=== PATIENT | female | born 1945 | race Caucasian/White ===

== ENCOUNTER 2016-10-06 22:56 | Outpatient (CLI) | payer MEDICARE, OTHER | END 2016-10-06 22:57 | disposition home or self-care (01) | DX: Z01.89 Encounter for other specified special examinations (principal) ==

== ENCOUNTER 2016-12-08 10:35 | Outpatient (CLI) | payer MEDICARE ==
[2016-12-08 14:00] LABS: BASOPHILS % (AUTO) 0.5 %; EOSINOPHILS # (AUTO) 0.1 10^3/uL (0.0-0.7); EOSINOPHILS % (AUTO) 0.8 %; HGB - HEMOGLOBIN 14.2 g/dL (12.0-16.0); LYMPHOCYTES # (AUTO) 1.6 10^3/uL (1.5-3.5)
[2016-12-08 14:04] LABS: BASOPHILS # (AUTO) 0.1 10^3/uL (0.0-0.1); HCT - HEMATOCRIT 41.8 % (37.0-47.0); LYMPHOCYTES % (AUTO) 16.3 %; MEAN CORPUSCULAR HEMOGLOBIN 32.3 pg (27.0-31.0); MEAN CORPUSCULAR HGB CONC 33.9 g/dL (32.0-36.0); MEAN CORPUSCULAR VOLUME 95.2 fL (81.0-99.0); MEAN PLATELET VOLUME 9.9 fL (7.9-10.8); MONOCYTES # (AUTO) 0.7 10^3/uL (0.0-1.0); MONOCYTES % (AUTO) 7.4 %; NEUTROPHILS # (AUTO) 7.6 10^3/uL (1.5-6.6); NUCLEATED RED BLOOD CELLS AUTO 0.1 /100WBC; RED BLOOD COUNT 4.39 10^6/uL (4.20-5.40); RED CELL DISTRIBUTION WIDTH 12.7 % (12.0-15.0); UNCORRECTED WHITE BLOOD COUNT 10.1 x10^3/uL; WHITE BLOOD COUNT 10.1 x10^3/uL (4.8-10.8)
[2016-12-08 14:10] LABS: ALBUMIN/GLOBULIN RATIO 1.2 (1.0-2.2); CALCIUM 9.6 mg/dL (8.5-10.3); CREATININE 0.9 mg/dL (0.4-1.0); POTASSIUM 4.4 mmol/L (3.5-5.0); TOTAL PROTEIN 7.8 g/dL (6.7-8.2)
== END 2016-12-08 10:36 | disposition home or self-care (01) ==
LOC: LAB.WCP 10:35
PROVIDERS: ATTEND Internal Medicine Gastroenterology
DX: B19.20 Unspecified viral hepatitis C without hepatic coma (principal)
CPT/HCPCS: 36415; 80053; 85025; 87522

== ENCOUNTER 2017-02-15 13:16 | Day surgery (SDC) | payer MEDICARE ==
[2017-02-15] MEDS ORDERED: LACTATED RINGERS 1,000 ML IV ONE (13:25)
[2017-02-15] MEDS ORDERED: MIDAZOLAM 2 MG/2 ML VIAL IVP ONE (15:50)
[2017-02-15] MEDS ORDERED: fentaNYL 100 MCG/2 ML VIAL IVP ONE (15:50)
[2017-02-15 16:09] VITALS: BP 114/85
--- NOTE | 2017-02-16 01:36 | PROCEDURE REPORT ---
DATE OF PROCEDURE: 02/15/2017 00:00:00 ENDOSCOPIST: Gabriele Jesus MD. PRIMARY CARE: LIAM Carlson. INDICATION: History of polyps. PREMEDICATIONS: Fentanyl 150 mcg, Versed 9 mg IV titration. After informed consent was obtained, the patient was placed in the left lateral decubitus position. T he video colonoscope was introduced through the rectum, slowly advanced to the cecum. On slow withdra wal, mucosa was carefully examined. The scope was removed. The patient tolerated the procedure well. BLOOD LOSS: None. COMPLICATIONS: None. FINDINGS: 1. A 3 mm cecal polyp, jumbo biopsied and removed completely. 2. Otherwise negative colonoscopy to cecum. The patient will have pathology results sent to her, but otherwise will need followup colonoscopy in 5 years. JOB #: [id number] EXT JOB #:[id number]
== END 2017-02-15 13:17 | disposition home or self-care (01) ==
LOC: SDS 13:16
PROVIDERS: ATTEND Internal Medicine Gastroenterology
PROC: 0DBH8ZX Excision of Cecum, Via Natural or Artificial Opening Endoscopic, Diagnostic (ICD-10-PCS; principal; 2017-02-15 14:30)
DX: D12.0 Benign neoplasm of cecum (principal); E03.9 Hypothyroidism, unspecified; F41.9 Anxiety disorder, unspecified
CPT/HCPCS: 45380; 88305; J7120

== ENCOUNTER 2017-03-01 11:43 | Outpatient (CLI) | payer MEDICARE ==
--- NOTE | 2017-03-02 12:20 | CT Report ---
EXAM CT LUNG SCREEN EXAM DATE: 03/01/2017 04:22 PM. HISTORY: 71-year-old patient with history of smoking and other risk factors. Currently smoking: Abilio anthony. Years since quitting: Unknown. COMPARISON: 02/20/2017. 02/02/2016. TECHNIQUE: CT examination of the entire thorax without contrast was performed using low-dose techniqu e. Thin section coronal, axial, sagittal and MIP axial images were obtained. In accordance with CT protocol optimization, one or more of the following dose reduction techniques w ere utilized for this exam: automated exposure control, adjustment of mA and/or KV based on patient s ize, or use of iterative reconstructive technique. FINDINGS: Nodules: Right upper lobe: None. Right middle lobe: None. Right lower lobe: None. Left upper lobe: None. Left lower lobe: None. Emphysema: Mild predominantly upper lobe emphysematous changes. Pleura: Unremarkable. Aorta: No evidence of aneurysm. Calcified plaque along the aortic root and distal aortic arch/proxima l descending thoracic aorta. Mediastinum: Heart size is normal as pericardial effusion. No enlarged mediastinal or hilar lymph nod es. Visualized upper gland is unremarkable. Coronary Calcifications: Mild to moderate degree of coronary artery calcified plaque. Other Findings: Included portions of the upper abdomen are unremarkable. Degenerative changes of the thoracic spine. No acute osseous abnormalities are identified. IMPRESSION: Lung-RADS ASSESSMENT CATEGORY: 1 - negative. Probability of malignancy: Less than 1%. RECOMMENDATION: Continued interval screening with low-dose CT in 12 months. [facility] Referring Provider Line: [phone] SITE ID: [id number]
== END 2017-03-01 11:44 | disposition home or self-care (01) ==
LOC: DI 11:43
PROVIDERS: ATTEND Physician Assistant Medical
DX: Z12.2 Encounter for screening for malignant neoplasm of respiratory organs (principal); F17.210 Nicotine dependence, cigarettes, uncomplicated

== ENCOUNTER 2017-03-06 14:40 | Outpatient (CLI) | payer MEDICARE | END 2017-03-06 14:41 | disposition home or self-care (01) | LOC: LAB.R 14:40 | PROVIDERS: ATTEND Physician Assistant Medical | DX: N39.0 Urinary tract infection, site not specified (principal) | CPT/HCPCS: 87086 ==

== ENCOUNTER 2017-06-29 12:18 | Outpatient (CLI) | payer MEDICARE ==
--- NOTE | 2017-06-29 12:59 | CT Report ---
DATE OF SERVICE: 06/29/2017 CT BRAIN WITHOUT CONTRAST: 06/29/2017 CLINICAL INDICATION: Syncope, collapse. TECHNIQUE: Axial CT images of the brain were obtained without contrast. No previous CT is available for comparison. In accordance with CT protocol optimization, one or more of the following dose reduction techniques were utilized for this exam: Automated exposure control, adjustment of mA and/or KV based on patient size, or use of iterative reconstructive technique. FINDINGS: The ventricles and sulci are normal in size, shape and configuration. The basilar cisterns are patent. There is no evidence of intracranial hemorrhage, mass effect, or midline shift. The visualized orbital contents and paranasal sinuses are unremarkable. IMPRESSION: NORMAL CT OF THE BRAIN WITHOUT CONTRAST. TD: 06/29/2017 13:58
== END 2017-06-29 12:19 | disposition home or self-care (01) ==
LOC: DI 12:18
PROVIDERS: ATTEND Physician Assistant Medical
DX: R55 Syncope and collapse (principal)
CPT/HCPCS: 70450

== ENCOUNTER 2017-07-03 19:20 | Outpatient (CLI) | payer MEDICARE ==
[2017-07-03 19:12] LABS: BASOPHILS # (AUTO) 0.1 10^3/uL (0.0-0.1); EOSINOPHILS % (AUTO) 0.4 %; HGB - HEMOGLOBIN 14.1 g/dL (12.0-16.0); LYMPHOCYTES # (AUTO) 2.4 10^3/uL (1.5-3.5); LYMPHOCYTES % (AUTO) 26.9 %; MEAN CORPUSCULAR HEMOGLOBIN 31.1 pg (27.0-31.0); MEAN CORPUSCULAR HGB CONC 32.7 g/dL (32.0-36.0); MEAN CORPUSCULAR VOLUME 95.2 fL (81.0-99.0); MEAN PLATELET VOLUME 9.5 fL (7.9-10.8); MONOCYTES # (AUTO) 0.7 10^3/uL (0.0-1.0); MONOCYTES % (AUTO) 7.3 %; NEUTROPHILS # (AUTO) 5.8 10^3/uL (1.5-6.6); NEUTROPHILS % (AUTO) 64.4 %; PLT - PLATELET COUNT 272 10^3/uL (130-450); RED BLOOD COUNT 4.54 10^6/uL (4.20-5.40); RED CELL DISTRIBUTION WIDTH 12.7 % (12.0-15.0)
[2017-07-03 19:33] LABS: ALBUMIN 4.3 g/dL (3.2-5.5); ALBUMIN/GLOBULIN RATIO 1.2 (1.0-2.2); BILIRUBIN,TOTAL 0.9 mg/dL (0.2-1.0); CALCIUM 9.4 mg/dL (8.5-10.3); CREATININE 0.8 mg/dL (0.4-1.0); MAGNESIUM 1.9 mg/dL (1.7-2.8); TOTAL PROTEIN 7.9 g/dL (6.7-8.2)
== END 2017-07-03 19:21 | disposition home or self-care (01) ==
LOC: LAB.R 19:20
PROVIDERS: ATTEND Physician Assistant Medical
DX: R55 Syncope and collapse (principal)
CPT/HCPCS: 80053; 83735; 85025

== ENCOUNTER 2018-01-11 08:00 | Outpatient (CLI) | payer MEDICARE, MEDICAID ==
[2018-01-11 18:54] LABS: BASOPHILS % (AUTO) 0.5 %; EOSINOPHILS # (AUTO) 0.1 10^3/uL (0.0-0.7); EOSINOPHILS % (AUTO) 0.9 %; HGB - HEMOGLOBIN 14.7 g/dL (12.0-16.0); LYMPHOCYTES # (AUTO) 2.4 10^3/uL (1.5-3.5); LYMPHOCYTES % (AUTO) 28.4 %; MEAN CORPUSCULAR HEMOGLOBIN 32.4 pg (27.0-31.0); MEAN CORPUSCULAR HGB CONC 33.7 g/dL (32.0-36.0); MEAN CORPUSCULAR VOLUME 96.3 fL (81.0-99.0); MEAN PLATELET VOLUME 9.9 fL (7.9-10.8); MONOCYTES # (AUTO) 0.8 10^3/uL (0.0-1.0); MONOCYTES % (AUTO) 9.1 %; NEUTROPHILS # (AUTO) 5.2 10^3/uL (1.5-6.6); NEUTROPHILS % (AUTO) 61.1 %; PLT - PLATELET COUNT 262 10^3/uL (130-450); RED BLOOD COUNT 4.52 10^6/uL (4.20-5.40); RED CELL DISTRIBUTION WIDTH 13.1 % (12.0-15.0); WHITE BLOOD COUNT 8.5 x10^3/uL (4.8-10.8)
[2018-01-11 19:06] LABS: ALBUMIN/GLOBULIN RATIO 1.2 (1.0-2.2); ALKALINE PHOSPHATASE 76 IU/L (42-121); ALT ALANINE AMINOTRANSFERASE 14 IU/L (10-60); AST ASPARTATE AMINOTRANSFERASE 22 IU/L (10-42); BILIRUBIN,TOTAL 1.1 mg/dL (0.2-1.0); BUN - BLOOD UREA NITROGEN 14 mg/dL (6-20); CALCIUM 9.7 mg/dL (8.5-10.3); CARBON DIOXIDE - CO2 27 mmol/L (21-32); CHLORIDE 97 mmol/L (101-111); CHOLESTEROL 269 mg/dL; GFR - MDRD 55 (>89); GLUCOSE 82 mg/dL (70-100); HDL CHOLESTEROL 45 mg/dL; LDL CHOLESTEROL,CALCULATED 186 mg/dL; LDL/HDL RATIO 4.1 (<4.4); SODIUM 132 mmol/L (135-145); TOTAL PROTEIN 7.3 g/dL (6.7-8.2); VLDL CHOLESTEROL 38 mg/dL
== END 2018-01-11 08:01 | disposition home or self-care (01) ==
LOC: LAB.WCP 08:00
PROVIDERS: ATTEND Physician Assistant Medical
DX: B19.20 Unspecified viral hepatitis C without hepatic coma (principal); R55 Syncope and collapse; E03.9 Hypothyroidism, unspecified; J30.9 Allergic rhinitis, unspecified
CPT/HCPCS: 36415; 80053; 80061; 83721; 84443; 85025

== ENCOUNTER → 2018-01-29 | Outpatient (CLI) | payer MEDICARE, MEDICAID ==
[2018-01-29 19:04] LABS: BASOPHILS % (AUTO) 0.5 %; EOSINOPHILS # (AUTO) 0.1 10^3/uL (0.0-0.7); EOSINOPHILS % (AUTO) 1.5 %; HGB - HEMOGLOBIN 14.3 g/dL (12.0-16.0); LYMPHOCYTES # (AUTO) 1.9 10^3/uL (1.5-3.5); LYMPHOCYTES % (AUTO) 24.8 %; MEAN CORPUSCULAR HEMOGLOBIN 32.4 pg (27.0-31.0); MEAN CORPUSCULAR HGB CONC 33.6 g/dL (32.0-36.0); MEAN CORPUSCULAR VOLUME 96.6 fL (81.0-99.0); MONOCYTES # (AUTO) 0.7 10^3/uL (0.0-1.0); MONOCYTES % (AUTO) 8.9 %; NEUTROPHILS % (AUTO) 64.3 %; PLT - PLATELET COUNT 256 10^3/uL (130-450); RED BLOOD COUNT 4.42 10^6/uL (4.20-5.40); RED CELL DISTRIBUTION WIDTH 13.2 % (12.0-15.0); WHITE BLOOD COUNT 7.8 x10^3/uL (4.8-10.8)
[2018-01-29 19:41] LABS: ALBUMIN 4.2 g/dL (3.2-5.5); ALBUMIN/GLOBULIN RATIO 1.2 (1.0-2.2); ALKALINE PHOSPHATASE 70 IU/L (42-121); ALT ALANINE AMINOTRANSFERASE 17 IU/L (10-60); AST ASPARTATE AMINOTRANSFERASE 22 IU/L (10-42); BILIRUBIN,TOTAL 1.2 mg/dL (0.2-1.0); BUN - BLOOD UREA NITROGEN 17 mg/dL (6-20); CALCIUM 9.1 mg/dL (8.5-10.3); CARBON DIOXIDE - CO2 23 mmol/L (21-32); CHLORIDE 106 mmol/L (101-111); CHOL/HDL RATIO 3.2 (<4.4); CHOLESTEROL 170 mg/dL; CREATININE 0.8 mg/dL (0.4-1.0); GFR - MDRD 71 (>89); GLUCOSE 105 mg/dL (70-100); HDL CHOLESTEROL 53 mg/dL; LDL CHOLESTEROL,CALCULATED 95 mg/dL; LDL/HDL RATIO 1.8 (<4.4); SODIUM 138 mmol/L (135-145); TOTAL PROTEIN 7.8 g/dL (6.7-8.2); VLDL CHOLESTEROL 22 mg/dL
== END ==
LOC: LAB.WCP 08:00
PROVIDERS: ATTEND Internal Medicine Cardiovascular Disease
DX: R55 Syncope and collapse (principal); E78.5 Hyperlipidemia, unspecified
CPT/HCPCS: 36415; 80053; 80061; 83721; 84443; 85025

== ENCOUNTER 2018-04-05 13:34 | Outpatient (CLI) | payer MEDICARE, MEDICAID ==
--- NOTE | 2018-04-06 10:14 | Mammography Report ---
Reason: SCREENING MAMMO Procedure Date: 04/05/2018 Accession Number: [id number] / [id number] Procedure: MGN - Screening Mammo Dig Bilat CPT Code: FULL RESULT: EXAM: Screening Mammo Dig Bilat DATE: 04/05/2018 1:56 PM CLINICAL HISTORY: Routine screening TECHNIQUE: Bilateral CC and MLO views were obtained. COMPARISON: 03/16/2016, 02/12/2015, 06/11/2013 and 06/03/2013 FINDINGS: There are scattered fibroglandular densities. There is no significant interval change. No suspicious masses, clustered microcalcifications, or regions of architectural distortion are identified. IMPRESSION: Negative examination RECOMMENDATION: Routine annual screening unless otherwise clinically indicated. BIRADS CATEGORY 1: Negative STANDARD QUALIFYING STATEMENTS: 1. This examination was reviewed with the aid of Computer-Aided Detection (CAD). 2. A negative or benign imaging report should not delay biopsy if clinically suspicious findings are present. Consider surgical consultation if warrented. More than 5% of cancers are not identified by imaging. 3. Dense breasts may obscure an underlying neoplasm.
== END 2018-04-05 13:35 | disposition home or self-care (01) ==
LOC: DI.N 13:34
DX: Z12.31 Encounter for screening mammogram for malignant neoplasm of breast (principal)
CPT/HCPCS: 77067

== ENCOUNTER 2018-05-19 11:33 | Outpatient (CLI) | payer MEDICARE, MEDICAID ==
--- NOTE | 2018-05-21 12:13 | MRI Report ---
Reason: INTERNAL DERANGEMENT OF RIGHT KNEE Procedure Date: 05/19/2018 Accession Number: [id number] / [id number] Procedure: MRI - Knee RT W/O CPT Code: FULL RESULT: EXAM: RIGHT KNEE MRI WITHOUT CONTRAST EXAM DATE: 05/19/2018 12:38 PM. CLINICAL HISTORY: Internal derangement of right knee. COMPARISON: KNEE 2 VIEW RT 05/16/2018 8:12 AM. TECHNIQUE: Multiplanar, multisequence T1-weighted and fluid-sensitive sequences of the knee without contrast. Other: None. FINDINGS: Bones: Healing nondisplaced fracture posterior aspect medial tibial plateau. Moderate spurring lateral femoral condyle. Mild spurring medial and lateral tibial plateau. Moderate spurring anterior aspect medial femoral condyle. Mild edema anterior aspect medial tibial plateau. Articular Cartilage: Severe chondromalacia medial patellar facet and patellar apex. Moderate chondromalacia medial femoral condyle. Severe chondromalacia medial tibiofemoral compartment. Moderate chondromalacia medial tibiofemoral compartment. Medial Meniscus: Complex tear body and posterior horn medial meniscus. Lateral Meniscus: Small free edge tear junction anterior horn and body lateral meniscus. Cruciate Ligaments: The anterior and posterior cruciate ligaments are intact. Collateral Ligaments: The medial collateral and lateral collateral ligamentous structures are intact. Tendons: The quadriceps, patellar, semimembranosus, and popliteus tendons are unremarkable. Musculature: No edema or fatty atrophy. Other: Moderate quantity of fluid patellar recesses. No popliteal cyst. No loose bodies. The medial and lateral retinacula are intact. The subcutaneous tissues and fat pads are unremarkable. IMPRESSION: 1. Complex tear body and posterior horn medial meniscus. 2. Severe chondromalacia medial tibiofemoral compartment. 3. Moderate chondromalacia lateral tibiofemoral compartment. 4. Severe chondromalacia medial patellar facet. [facility] MUSCULOSKELETAL RADIOLOGY SECTION
== END 2018-05-19 11:34 | disposition home or self-care (01) ==
LOC: DI 11:33
PROVIDERS: ATTEND Physician Assistant
DX: S83.231A Complex tear of medial meniscus, current injury, right knee, initial encounter (principal); M94.261 Chondromalacia, right knee

== ENCOUNTER 2018-08-22 10:46 | Outpatient (CLI) | payer MEDICARE, MEDICAID | END 2018-08-22 23:59 | disposition home or self-care (01) | LOC: LAB.WCP 10:46 | PROVIDERS: ATTEND Physician Assistant | DX: S81.802S Unspecified open wound, left lower leg, sequela (principal) | CPT/HCPCS: 87070; 87075; 87205 ==

== ENCOUNTER 2018-10-22 08:00 | Outpatient (CLI) | payer MEDICARE, MEDICAID ==
[2018-10-22 19:00] LABS: % IRON SATURATION 29 % (20-50); ALBUMIN 4.2 g/dL (3.2-5.5); ALBUMIN/GLOBULIN RATIO 1.4 (1.0-2.2); ALKALINE PHOSPHATASE 64 IU/L (42-121); ALT ALANINE AMINOTRANSFERASE 12 IU/L (10-60); AST ASPARTATE AMINOTRANSFERASE 18 IU/L (10-42); BILIRUBIN,TOTAL 0.6 mg/dL (0.2-1.0); BUN - BLOOD UREA NITROGEN 22 mg/dL (6-20); CALCIUM 8.8 mg/dL (8.5-10.3); CARBON DIOXIDE - CO2 25 mmol/L (21-32); CHLORIDE 100 mmol/L (101-111); CHOL/HDL RATIO 2.4 (<4.4); CHOLESTEROL 156 mg/dL; CREATININE 0.8 mg/dL (0.4-1.0); GFR - MDRD 71 (>89); GLUCOSE 88 mg/dL (70-100); HDL CHOLESTEROL 65 mg/dL; IRON 100 ug/dL (28-170); LDL CHOLESTEROL,CALCULATED 76 mg/dL; LDL/HDL RATIO 1.2 (<4.4); SODIUM 134 mmol/L (135-145); TOTAL IRON BINDING CAPACITY 349 ug/dL (250-450); TOTAL PROTEIN 7.3 g/dL (6.7-8.2); TRANSFERRIN 249 mg/dL (192-382); VLDL CHOLESTEROL 15 mg/dL
[2018-10-22 19:32] LABS: BASOPHILS % (AUTO) 0.4 %; EOSINOPHILS # (AUTO) 0.1 10^3/uL (0.0-0.7); EOSINOPHILS % (AUTO) 0.7 %; HGB - HEMOGLOBIN 13.2 g/dL (12.0-16.0); MEAN CORPUSCULAR HEMOGLOBIN 31.7 pg (27.0-31.0); MEAN CORPUSCULAR HGB CONC 32.9 g/dL (32.0-36.0); MEAN CORPUSCULAR VOLUME 96.1 fL (81.0-99.0); MEAN PLATELET VOLUME 9.4 fL (7.9-10.8); MONOCYTES # (AUTO) 0.8 10^3/uL (0.0-1.0); MONOCYTES % (AUTO) 9.1 %; NEUTROPHILS # (AUTO) 6.1 10^3/uL (1.5-6.6); NEUTROPHILS % (AUTO) 67.8 %; PLT - PLATELET COUNT 248 10^3/uL (130-450); RED BLOOD COUNT 4.17 10^6/uL (4.20-5.40); RED CELL DISTRIBUTION WIDTH 13.2 % (12.0-15.0)
== END 2018-10-22 08:01 | disposition home or self-care (01) ==
LOC: LAB.WCP 08:00
PROVIDERS: ATTEND Physician Assistant
DX: E78.5 Hyperlipidemia, unspecified (principal); R53.83 Other fatigue
CPT/HCPCS: 36415; 80053; 80061; 83540; 83721; 84443; 84466; 85025

== ENCOUNTER 2018-12-04 13:41 | Outpatient (CLI) | payer MEDICARE, MEDICAID | END 2018-12-04 13:42 | disposition short-term general hospital (02) | LOC: EMS 13:41 | PROVIDERS: ATTEND Surgery | DX: R53.83 Other fatigue (principal); R53.1 Weakness | CPT/HCPCS: A0425; A0429; A0888 ==

== ENCOUNTER 2019-01-03 10:44 | Outpatient (CLI) | payer MEDICARE, MEDICAID ==
[2019-01-03] MEDS ORDERED: REGADENOSON 0.4 MG/5 ML SYRINGE IVP ONE (12:02)
--- NOTE | 2019-01-03 14:31 | CARDIAC PROCEDURE NOTE ---
DATE OF SERVICE: 01/03/2019 Physician: Bianka Aguillon MD, [facility] INDICATIONS: Chest pain. CARDIAC RISK FACTORS 1. Advanced age. 2. Post-menopausal status. 3. Family history of heart disease 4. Smoking history. PROCEDURE: After signing informed consent, the patient underwent a Jose- protocol treadmill stress test with nuclear myocardial perfusion imaging. RESTING HEART RATE: 58. PEAK HEART RATE: 126 (86% predicted maximum heart rate for age). RESTING BLOOD PRESSURE: 120/81. PEAK BLOOD PRESSURE: 140/70. The patient exercised for 3 minutes and 35 seconds on a Jose-protocol treadmill stress test. She achieved a peak heart rate of 126 (86% Pred Max HR) and 4.6 METS. The patient developed fatigue and moderate to severe shortness of breath, described her perceived exertion as 14/20 on a Lilliana scale. For this reason, exercise was stopped. Oxygen saturation was 94% at peak on room air. She had no complaints of chest pain. EKG AT REST: Normal sinus rhythm, left atrial enlargement, otherwise within normal limits. EKG AT PEAK: Rare PACs, 1.[address] depressions in leads V5 through V6. These abnormalities returned to baseline after 4 minutes of recovery. SUMMARY 1. Mildly abnormal resting EKG. 2. Poor exercise tolerance. 3. Borderline-abnormal EKG changes to suggest ischemia during exercise stress testing at an adequate level of stress. 4. This patient's cardiac risk, based on EKG alone, is MODERATE. 5. Nuclear images reported separately. cc: Harmony Gale PA-C TD: 01/03/2019 14:11 MTDAgata
--- NOTE | 2019-01-04 11:33 | Nuclear Medicine Report ---
Reason: CHEST PAIN Procedure Date: 01/03/2019 Accession Number: [id number] / [id number] Procedure: NM - Myocardial Perfusion STR/RST CPT Code: FULL RESULT: EXAM: SINGLE-ISOTOPE EXERCISE STRESS TEST. SINGLE-ISOTOPE AND ONE-DAY REST/STRESS MYOCARDIAL PERFUSION SCANS WITH TOMOGRAPHIC IMAGING, QUANTITATIVE ANALYSIS, WALL MOTION ANALYSIS AND CALCULATION OF EJECTION FRACTION. EXAM DATE: 01/03/2019 02:05 PM. CLINICAL HISTORY: CHEST PAIN. COMPARISON: None. TECHNIQUE: A rest myocardial perfusion scan was done with tomography after the intravenous administration of 10.7 mCi Tc-99m sestamibi. After an appropriate delay, a treadmill exercise stress was performed according to department protocol. The patient exercised for 3 minutes and 35 seconds. The maximum heart rate was 126 bpm, which was 85% of the maximum predicted heart rate of 148 bpm. At approximately peak heart rate, 43.4 mCi of Tc-99m sestamibi was injected for stress myocardial perfusion scan. Motion correction was applied when appropriate. Gated tomographic images were obtained for wall motion analysis and computation of left ventricular ejection fraction. FINDINGS: Perfusion images: Left ventricular chamber size appears normal at rest and unchanged at stress. No convincing fixed perfusion deficits. There is a moderate size region of mildly reduced uptake involving the entire septum on stress images which appears improved on rest images. SSS 9, SRS 2, SDS 7. Gated images: No convincing focal wall motion abnormality. Calculated left ventricular EDV 44 mL, ESV 11 mL. The left ventricular ejection fraction is estimated at 75% (normal > 50%). IMPRESSION: 1. Moderate size, mild severity reversible septal perfusion deficit, suggestive of mild stress-induced ischemia. 2. No convincing fixed perfusion deficits. 3. Left ventricular ejection fraction of 75% (normal > 50%). Please correlate findings with stress ECG tracings and procedure notes. [facility]
== END 2019-01-03 10:45 | disposition home or self-care (01) ==
LOC: DI 10:44
PROVIDERS: ATTEND Physician Assistant
DX: R07.9 Chest pain, unspecified (principal); R94.31 Abnormal electrocardiogram [ECG] [EKG]; Z82.49 Family history of ischemic heart disease and other diseases of the circulatory system; Z78.0 Asymptomatic menopausal state; Z87.891 Personal history of nicotine dependence
CPT/HCPCS: 78452; 93016; 93017; 93018; A9500

== ENCOUNTER 2019-01-09 08:23 | Outpatient (CLI) | payer MEDICARE, MEDICAID ==
[2019-01-09 12:45] LABS: BASOPHILS % (AUTO) 0.5 %; EOSINOPHILS # (AUTO) 0.2 10^3/uL (0.0-0.7); EOSINOPHILS % (AUTO) 2.1 %; HGB - HEMOGLOBIN 13.4 g/dL (12.0-16.0); LYMPHOCYTES % (AUTO) 23.4 %; MEAN CORPUSCULAR HEMOGLOBIN 32.8 pg (27.0-31.0); MEAN CORPUSCULAR HGB CONC 33.3 g/dL (32.0-36.0); MEAN CORPUSCULAR VOLUME 98.3 fL (81.0-99.0); MONOCYTES # (AUTO) 0.7 10^3/uL (0.0-1.0); MONOCYTES % (AUTO) 8.6 %; NEUTROPHILS # (AUTO) 5.6 10^3/uL (1.5-6.6); PLT - PLATELET COUNT 263 10^3/uL (130-450); RED BLOOD COUNT 4.09 10^6/uL (4.20-5.40); RED CELL DISTRIBUTION WIDTH 12.6 % (12.0-15.0); WHITE BLOOD COUNT 8.5 x10^3/uL (4.8-10.8)
[2019-01-09 13:40] LABS: ALBUMIN/GLOBULIN RATIO 1.3 (1.0-2.2); ALKALINE PHOSPHATASE 64 IU/L (42-121); ALT ALANINE AMINOTRANSFERASE 14 IU/L (10-60); AST ASPARTATE AMINOTRANSFERASE 21 IU/L (10-42); BUN - BLOOD UREA NITROGEN 18 mg/dL (6-20); CALCIUM 9.1 mg/dL (8.5-10.3); CARBON DIOXIDE - CO2 19 mmol/L (21-32); CHLORIDE 110 mmol/L (101-111); CHOL/HDL RATIO 2.5 (<4.4); CHOLESTEROL 165 mg/dL; GFR - MDRD 55 (>89); GLUCOSE 101 mg/dL (70-100); HDL CHOLESTEROL 65 mg/dL; LDL CHOLESTEROL,CALCULATED 82 mg/dL; LDL/HDL RATIO 1.3 (<4.4); SODIUM 140 mmol/L (135-145); TOTAL PROTEIN 7.1 g/dL (6.7-8.2); VLDL CHOLESTEROL 18 mg/dL
== END 2019-01-09 08:24 | disposition home or self-care (01) ==
LOC: LAB.WCP 08:23
PROVIDERS: ATTEND Physician Assistant
DX: E78.5 Hyperlipidemia, unspecified (principal); E03.9 Hypothyroidism, unspecified
CPT/HCPCS: 36415; 80053; 80061; 83721; 84443; 85025

== ENCOUNTER 2019-03-03 12:52 | Emergency (ER) | payer MEDICARE, MEDICAID ==
--- NOTE | 2019-03-03 13:30 | ED Physician Documentation ---
PD HPI HEAD INJURY - Stated complaint Stated Complaint: HEAD LAC - Chief complaint Chief Complaint: Laceration - History obtained from History obtained from: Patient - History of Present Illness Mechanism of head injury: Fell, Laceration Where head injury occurred: Home Timing - onset: Today (3AM) Location of injury: Right Associated symptoms: Amnesia. No: Nausea / vomiting, Neck pain, Paresthesias, Seizures Symptoms improve with: Nothing Contributing factors: Anticoagulated (baby aspirin daily) Similar symptoms before: Has not had sx before Recently seen: Not recently seen - Additional information Additional information: Is a 73-year-old woman who lives alone. She was running for the bathroom last night at 3 AM when she fell hitting her head on something. She says she remembers a lot of blood in the bathtub and she thinks she may have gotten on her hands and knees and leaned over the tub and dripped into it. She does not know whether or not she passed out. She lives alone. She did not think that much of the cut, was just going to let it heal until her neighbor saw it and insisted that she come in and be evaluated. Patient has not cleaned it at all. She is uncertain when her last tetanus vaccine was. She does have a headache along the right side of her head encompassing the forehead and slightly down into the upper neck. She denies feeling dizzy or having nausea or vomiting. She denies any pain, numbness or tingling into the extremities. No extremity injury. She drove herself here. She takes a baby aspirin daily. She has had an anaphylactic reaction to penicillin in the past. Review of Systems Eyes: denies: Loss of vision, Decreased vision Ears: denies: Drainage/discharge Throat: reports: Other (Jaw occlusion is normal) Cardiac: denies: Palpitations Skin: reports: Laceration (s) (Right forehead) Musculoskeletal: denies: Neck pain Neurologic: reports: Headache, Head injury, LOC (Unknown). 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 - Present Medications Home Medications: Ambulatory Orders Medication Instructions Recorded Confirmed Acetaminophen 500 mg PO QID 02/15/17 09/05/18 Acetaminophen [Feverall] 1 each PO TID 02/15/17 09/05/18 Duloxetine HCl [Cymbalta] 60 mg PO DAILY 02/15/17 09/05/18 Eszopiclone [Lunesta] 3 mg PO DAILY 02/15/17 09/05/18 Gabapentin [Neurontin] 400 mg PO HS 02/15/17 09/05/18 Lorazepam [Ativan] 2 mg PO DAILY PM 02/15/17 09/05/18 Multivitamin [Multiple Vitamins] 1 each PO DAILY 02/15/17 09/05/18 [place]-3 Fatty Acids/Fish Oil [Fish 1 each PO DAILY 02/15/17 09/05/18 Oil 1,000 mg Softgel] Prazosin HCl [Minipress] 2 mg PO DAILY 02/15/17 09/05/18 Doxycycline Monohydrate 100 mg PO BID #6 tablet 03/03/19 - Allergies Allergies/Adverse Reactions: Allergies Allergy/AdvReac Type Severity Reaction Status Date / Time bee pollen Allergy Edema Verified 03/03/19 12:58 diphenhydramine HCl * Allergy Itching Verified 03/03/19 12:58 [From Benadryl] Penicillins Allergy Anaphylaxis Verified 03/03/19 12:58 codeine AdvReac Nausea Verified 03/03/19 12:58 Sulfa (Sulfonamide AdvReac Unknown Verified 03/03/19 12:58 Antibiotics) - Social History Does the pt smoke?: Yes Smoking Status: Current every day smoker PD ED PE NORMAL - Vitals Vital signs reviewed: Yes - General General: Alert and oriented X 3, No acute distress, Well developed/nourished - HEENT HEENT: PERRL, EOMI, Ears normal (No hemotympanum) - Neck Neck: No bony TTP - Cardiac Cardiac: RRR, No murmur - Respiratory Respiratory: No respiratory distress - Abdomen Abdomen: Normal bowel sounds, Soft - Derm Derm: Normal color, Other (3 cm laceration with dried blood on it on the right forehead.Forehead wrinkling is intact.) - Extremities Extremities: No deformity, No tenderness to palpate, Normal ROM s pain, No edema - Neuro Neuro: Alert and oriented X 3, criminal intelligence analyst 2-12 intact, No motor deficit, No sensory deficit, Normal speech, Other (No ataxia) - Psych Psych: Normal mood, Normal affect Results - Vitals Vitals: Oxygen O2 Source Room air Procedures - Laceration (location) Face right Length in cm: 3 Wound type: Irregular Neurovascular status: Sensory intact, Motor intact Anesthesia: Lidocaine 2% with epi Wound Preparation: Betadine, Irrigated copiously NS, Wound explored, To the base. No: FB identified Skin layer closure: Nylon, Interrupted, Sutures - enter # (7) Other: Patient tolerated well, No complications, Tetanus booster given Complexity: Simple PD MEDICAL DECISION MAKING - ED course Complexity details: d/w patient ED course: Head CT was negative for bleeding. Wound was repaired and patient tolerated this well. She is instructed on wound care and suture removal in 5 days. T ylenol if needed for pain. Follow-up if any signs of wound infection. I did place her on 3 days of doxycycline 100 mg twice daily due to the delayed closure. Departure - Departure Disposition: 01 Home, Self Care Clinical Impression: Laceration Instructions: ED Laceration All Follow-Up: Harmony Gale PA [Primary Care Provider] - Prescriptions: Doxycycline Monohydrate 100 mg PO BID #6 tablet Comments: * May wash the wound tomorrow with soap and water. Keep it clean and dry today. May apply thin layer of antibiotic ointment. Take the doxycycline twice a day for 3 days because we closed an older wound. Sutures should be removed in 5 days. Return immediately if any signs of infection to include spreading redness, purulent drainage, fever, increasing pain. Discharge Date/Time: 03/03/19 14:49
[2019-03-03] MEDS ORDERED: LIDOCAINE 2%-EPI 1:100000 20 ML MDV SUBQ STA (13:31)
[2019-03-03] MEDS ORDERED: TETANUS/DIPHTHERIA/PERTUSSIS 0.5 ML SYRINGE IM ONE (13:39)
[2019-03-03] MEDS ORDERED: BACITRACIN ZINC OINT 14 GM TOP STA (14:09)
--- NOTE | 2019-03-03 14:15 | CT Report ---
Reason: head injury from fall Procedure Date: 03/03/2019 Accession Number: [id number] / [id number] Procedure: CT - HEAD WO CPT Code: FULL RESULT: EXAM: CT HEAD EXAM DATE: 03/03/2019 01:41 PM. CLINICAL HISTORY: Head injury from fall. COMPARISON: HEAD W/O 06/29/2017 12:27 PM. TECHNIQUE: Multiaxial CT images were obtained from the foramen magnum to the vertex. Reformats: Sagittal and coronal. IV contrast: None. In accordance with CT protocol optimization, one or more of the following dose reduction techniques were utilized for this exam: automated exposure control, adjustment of mA and/or KV based on patient size, or use of iterative reconstructive technique. FINDINGS: Parenchyma: Tiny lacunar infarct in left basal ganglia. No intraparenchymal hemorrhage. No evidence of mass, midline shift, or CT findings of infarction. Garcia-white differentiation is distinct. Extraaxial Spaces: Normal for age. No subdural or epidural collections identified. Ventricles: Normal in size and position. Sinuses and Orbits: Imaged paranasal sinuses, orbits, and mastoids show no significant abnormality. Bones: No evidence of fracture or calvarial defect. Other: None. IMPRESSION: No acute traumatic intracranial abnormality. [facility]
[2019-03-03 14:29] VITALS: BP 146/77
== END 2019-03-03 14:49 | disposition home or self-care (01) ==
LOC: ED 12:52
DX: S01.91XA Laceration without foreign body of unspecified part of head, initial encounter (principal); W18.30XA Fall on same level, unspecified, initial encounter; Y93.02 Activity, running; Y92.002 Bathroom of unspecified non-institutional (private) residence as the place of occurrence of the external cause; F17.200 Nicotine dependence, unspecified, uncomplicated
CPT/HCPCS: 12013; 70450; 90471

== ENCOUNTER 2019-03-11 14:08 | Outpatient (CLI) | payer MEDICARE, MEDICAID | END 2019-03-11 14:09 | disposition critical access hospital (66) | LOC: EMS 14:08 | PROVIDERS: ATTEND Surgery | DX: R07.9 Chest pain, unspecified (principal) | CPT/HCPCS: A0425; A0427 ==

== ENCOUNTER 2019-03-11 14:31 | Emergency (ER) | payer MEDICARE, MEDICAID ==
[2019-03-11 15:01] LABS: BASOPHILS # (AUTO) 0.1 10^3/uL (0.0-0.1); BASOPHILS % (AUTO) 0.5 %; EOSINOPHILS # (AUTO) 0.2 10^3/uL (0.0-0.7); EOSINOPHILS % (AUTO) 1.7 %; HGB - HEMOGLOBIN 10.5 g/dL (12.0-16.0); LYMPHOCYTES % (AUTO) 15.8 %; MEAN CORPUSCULAR HEMOGLOBIN 32.6 pg (27.0-31.0); MEAN CORPUSCULAR HGB CONC 33.5 g/dL (32.0-36.0); MEAN CORPUSCULAR VOLUME 97.2 fL (81.0-99.0); MEAN PLATELET VOLUME 10.3 fL (7.9-10.8); MONOCYTES # (AUTO) 0.9 10^3/uL (0.0-1.0); MONOCYTES % (AUTO) 7.1 %; NEUTROPHILS # (AUTO) 9.2 10^3/uL (1.5-6.6); NEUTROPHILS % (AUTO) 74.6 %; PLT - PLATELET COUNT 235 10^3/uL (130-450); RED BLOOD COUNT 3.22 10^6/uL (4.20-5.40); RED CELL DISTRIBUTION WIDTH 12.2 % (12.0-15.0); WHITE BLOOD COUNT 12.3 x10^3/uL (4.8-10.8)
[2019-03-11 15:13] LABS: ALBUMIN 3.5 g/dL (3.2-5.5); ALBUMIN/GLOBULIN RATIO 1.1 (1.0-2.2); BILIRUBIN,TOTAL 0.5 mg/dL (0.2-1.0); CALCIUM 8.6 mg/dL (8.5-10.3); TOTAL PROTEIN 6.6 g/dL (6.7-8.2)
--- NOTE | 2019-03-11 15:49 | ED Physician Documentation ---
PD HPI CHEST PAIN - Stated complaint Stated Complaint: RESOLVED CP - Chief complaint Chief Complaint: Cardiac - History obtained from History obtained from: Patient, Family - History of Present Illness Timing - onset: Last night Timing - details: Now resolved Quality: Pain Location: Substernal Improved by: Nitro, ASA Similar symptoms before: Work up / diagnostics (Nuclear stress test in December 2018 revealed moderate sized mild severity reversible septal perfusion deficit, sugg estive of mild stress-induced ischemia.) Recently seen: Clinic (The patient was sent to the emergency department from her primary physician's clinic.) - Treatment prior to arrival Treatment prior to arrival: Sublingual nitroglycerin x1, and 4 baby aspirin. - Additional information Additional information: The patient is a 73-year-old female with history of coronary artery disease with a stress test in December 2018 revealing a reversible perfusion deficit, who presents via ambulance after experiencing substernal chest pain throughout most of the night. She was seen in her primary physician's office this morning and was given 4 baby aspirin and 1 sublingual nitroglycerin, which completely r elieved her substernal chest discomfort. She denies any associated shortness of breath, diaphoresis, nausea or vomiting. She has had similar symptoms intermittently in the past, but it has never lasted this long before. She denies cough or fever. She has been taking ibuprofen, up to 3000 mg/day for shoulder pain, back pain, and chest pain. Review of Systems Constitutional: denies: Fever Nose: denies: Congestion Throat: denies: Sore throat Cardiac: reports: Chest pain / pressure Respiratory: denies: Dyspnea, Cough GI: denies: Abdominal Pain, Nausea, Vomiting : denies: Dysuria Skin: denies: Rash Musculoskeletal: denies: Extremity pain, Extremity swelling Neurologic: denies: Focal weakness, Numbness, Headache PD PAST MEDICAL HISTORY - Past Medical History Cardiovascular: None Respiratory: None Endocrine/Autoimmune: HyPOthyroidism GI: Colon polyps : None HEENT: Chronic hearing loss Psych: Anxiety, Panic attacks, Claustrophobia Musculoskeletal: Osteoarthritis Derm: None Other Past Medical History: previous IV drug user - Past Surgical History General: Colonoscopy Ortho: Hip replacement /[employer]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: 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 - Present Medications Home Medications: Ambulatory Orders Medication Instructions Recorded Confirmed Acetaminophen 500 mg PO QID 02/15/17 09/05/18 Acetaminophen [Feverall] 1 each PO TID 02/15/17 09/05/18 Duloxetine HCl [Cymbalta] 60 mg PO DAILY 02/15/17 09/05/18 Eszopiclone [Lunesta] 3 mg PO DAILY 02/15/17 09/05/18 Gabapentin [Neurontin] 400 mg PO HS 02/15/17 09/05/18 Lorazepam [Ativan] 2 mg PO DAILY PM 02/15/17 09/05/18 Multivitamin [Multiple Vitamins] 1 each PO DAILY 02/15/17 09/05/18 [place]-3 Fatty Acids/Fish Oil [Fish 1 each PO DAILY 02/15/17 09/05/18 Oil 1,000 mg Softgel] Prazosin HCl [Minipress] 2 mg PO DAILY 02/15/17 09/05/18 Doxycycline Monohydrate 100 mg PO BID #6 tablet 03/03/19 - Allergies Allergies/Adverse Reactions: Allergies Allergy/AdvReac Type Severity Reaction Status Date / Time bee pollen Allergy Edema Verified 03/11/19 14:43 diphenhydramine HCl * Allergy Itching Verified 03/11/19 14:43 [From Benadryl] Penicillins Allergy Anaphylaxis Verified 03/11/19 14:43 codeine AdvReac Nausea Verified 03/11/19 14:43 Sulfa (Sulfonamide AdvReac Unknown Verified 03/11/19 14:43 Antibiotics) - Social History Does the pt smoke?: Yes Smoking Status: Current every day smoker Does the pt drink ETOH?: No Does the pt have substance abuse?: No - Immunizations Immunizations are current?: Yes - POLST Patient has POLST: No PD ED PE NORMAL - Vitals Vital signs reviewed: Yes (Normal) - General General: Alert and oriented X 3, Well developed/nourished - HEENT HEENT: Atraumatic, Pharynx benign - Neck Neck: No adenopathy, No JVD - Cardiac Cardiac: RRR - Respiratory Respiratory: No respiratory distress, Clear bilaterally - Abdomen Abdomen: Soft, Non tender - Back Back: No CVA TTP - Derm Derm: No rash - Extremities Extremities: No edema, No calf tenderness / cord - Neuro Neuro: Alert and oriented X 3, No motor deficit, Normal speech Results - Vitals Vitals: Vital Signs - 24 hr 03/11/19 03/11/19 03/11/19 14:37 14:46 14:52 Temperature 36.5 C Heart Rate 60 61 Respiratory 16 12 Rate Blood Pressure 133/76 H 137/80 H Blood Pressure 137/80 H [Left] Blood Pressure 135/75 H [Right] O2 Saturation 97 98 03/11/19 03/11/19 03/11/19 16:02 17:35 18:41 Temperature 37 C 36.6 C Heart Rate 73 65 76 Respiratory 18 18 23 Rate Blood Pressure 155/88 H 157/93 H 152/71 H Blood Pressure [Left] Blood Pressure [Right] O2 Saturation 98 98 97 03/11/19 03/11/19 20:16 20:49 Temperature Heart Rate 65 60 Respiratory 17 18 Rate Blood Pressure 139/79 H 132/77 H Blood Pressure [Left] Blood Pressure [Right] O2 Saturation 99 96 Oxygen O2 Source Room air - EKG (time done) 14:42 Rate: Rate (enter#) (75) Rhythm: NSR [place]: Normal Intervals: Normal VA QRS: Normal Ischemia: Other (Minimal ST elevation I and aVL.) Computer interpretation: Agree with computer - Labs Labs: Laboratory Tests 03/11/19 03/11/19 03/11/19 14:55 14:55 14:55 WBC 12.3 H RBC 3.22 L Hgb 10.5 L Hct 31.3 L MCV 97.2 MCH 32.6 H MCHC 33.5 RDW 12.2 Plt Count 235 MPV 10.3 Neut # (Auto) 9.2 H Lymph # (Auto) 2.0 [place] # (Auto) 0.9 Eos # (Auto) 0.2 Baso # (Auto) 0.1 Absolute Nucleated RBC 0.00 Nucleated RBC % 0.0 Sodium 141 Potassium 3.9 Chloride 111 Carbon Dioxide 21 Anion Gap 9.0 BUN 18 Creatinine 1.0 Estimated GFR (MDRD) 55 L Glucose 98 Calcium 8.6 Total Bilirubin 0.5 AST 14 ALT 12 Alkaline Phosphatase 58 Troponin I High Sens 3.7 Total Protein 6.6 L Albumin 3.5 Globulin 3.1 Albumin/Globulin Ratio 1.1 Lipase 45 - Rads (name of study) CXR Radiology: Prelim report reviewed, EMP read contemporaneously, See rad report (No acute cardiopulmonary findings radiographically.) PD MEDICAL DECISION MAKING - ED course Complexity details: reviewed old records, reviewed results, re-evaluated patient, considered differential, d/w patient, d/w family, d/w data center consultant ED course: The patient's presentation is significant for angina in a patient with known coronary artery disease. She had a positive nuclear stress test in December 2018. Her chest pain lasted for several hours starting last night and continuing through this morning. It was relieved with one sublingual nitroglycerin, and has not returned since relief. Her electrocardiogram does not reveal evidence of acute myocardial infarction, and her high-sensitivity troponin is negative. I discussed her condition with Dr. Rodriguez, amphibious operations officer on-call in [place]. He agreed to accept the patient in transfer, however there are no beds available at [facility]. I then discussed her condition with the amphibious operations officer, Dr. Gutiérrez, at [facility], and she agrees that the patient should be transferred for cardiac evaluation. I discussed her condition with the hospitalist, Dr. John, who accepts her for transfer. Transfer forms were completed. Treatment in the emergency department included administration of Lopressor 25 mg orally. Departure - Departure Disposition: 02 Transfer Acute Care Hosp Clinical Impression: Unstable angina Condition: Good Discharge Date/Time: 03/11/19 21:03
--- NOTE | 2019-03-11 16:08 | XRAY Report ---
Reason: chest pain Procedure Date: 03/11/2019 Accession Number: [id number] / [id number] Procedure: XR - Chest 1 View X-Ray CPT Code: 76253 FULL RESULT: EXAM: CHEST RADIOGRAPHY EXAM DATE: 03/11/2019 03:38 PM. CLINICAL HISTORY: Chest pain. COMPARISON: CHEST 2 VIEW PA/LAT 06/21/2018 11:52 AM. TECHNIQUE: 1 view. FINDINGS: Lungs/Pleura: Hypoventilatory chest. No infiltrates. No pleural effusions or pneumothorax. Mediastinum: Heart size within normal limits. No pulmonary vascular congestion. Osseous structures: No significant focal osseous lesions. IMPRESSION: 1. No acute cardiopulmonary findings radiographically. 2. Hypoventilatory chest. RADIA
[2019-03-11] MEDS ORDERED: METOPROLOL TARTRATE 50 MG TABLET PO STA (20:21)
[2019-03-11 20:51] VITALS: BP 132/77
== END 2019-03-11 21:03 | disposition short-term general hospital (02) ==
LOC: ED 14:31
DX: I20.0 Unstable angina (principal); F17.200 Nicotine dependence, unspecified, uncomplicated
CPT/HCPCS: 36415; 71045; 80053; 83690; 84484; 85025; 93005; 99284; 99285; A9270

== ENCOUNTER 2019-03-11 21:03 | Outpatient (CLI) | payer MEDICARE, MEDICAID | END 2019-03-11 21:04 | disposition short-term general hospital (02) | LOC: EMS 21:03 | PROVIDERS: ATTEND Surgery | DX: I20.0 Unstable angina (principal) | CPT/HCPCS: A0425; A0426 ==

== ENCOUNTER 2019-12-04 14:05 | Outpatient (CLI) | payer MEDICARE, MEDICAID ==
[2019-12-04 18:44] LABS: BASOPHILS # (AUTO) 0.1 10^3/uL (0.0-0.1); BASOPHILS % (AUTO) 0.6 %; EOSINOPHILS # (AUTO) 0.1 10^3/uL (0.0-0.7); EOSINOPHILS % (AUTO) 1.7 %; HGB - HEMOGLOBIN 12.6 g/dL (12.0-16.0); LYMPHOCYTES # (AUTO) 2.5 10^3/uL (1.5-3.5); LYMPHOCYTES % (AUTO) 31.8 %; MEAN CORPUSCULAR HEMOGLOBIN 30.9 pg (27.0-31.0); MEAN CORPUSCULAR VOLUME 96.6 fL (81.0-99.0); MEAN PLATELET VOLUME 12.2 fL (7.9-10.8); MONOCYTES # (AUTO) 0.7 10^3/uL (0.0-1.0); MONOCYTES % (AUTO) 8.4 %; NEUTROPHILS # (AUTO) 4.4 10^3/uL (1.5-6.6); NEUTROPHILS % (AUTO) 57.2 %; PLT - PLATELET COUNT 229 10^3/uL (130-450); RED BLOOD COUNT 4.08 10^6/uL (4.20-5.40); RED CELL DISTRIBUTION WIDTH 11.9 % (12.0-15.0); WHITE BLOOD COUNT 7.7 x10^3/uL (4.8-10.8)
[2019-12-04 19:07] LABS: HB2 TOTAL 13.9 g/dL; HEMOGLOBIN A1C 0.51 g/dL; HEMOGLOBIN A1C % 5.5 % (4.6-6.2)
[2019-12-04 19:19] LABS: ALBUMIN 3.9 g/dL (3.2-5.5); ALBUMIN/GLOBULIN RATIO 1.3 (1.0-2.2); ALKALINE PHOSPHATASE 70 IU/L (42-121); ALT ALANINE AMINOTRANSFERASE 21 IU/L (10-60); AST ASPARTATE AMINOTRANSFERASE 20 IU/L (10-42); BILIRUBIN,TOTAL 0.9 mg/dL (0.2-1.0); BUN - BLOOD UREA NITROGEN 21 mg/dL (6-20); CALCIUM 9.2 mg/dL (8.5-10.3); CARBON DIOXIDE - CO2 24 mmol/L (21-32); CHLORIDE 108 mmol/L (101-111); CHOL/HDL RATIO 3.5 (<4.4); CHOLESTEROL 142 mg/dL; CREATININE 0.8 mg/dL (0.4-1.0); GLUCOSE 90 mg/dL (70-100); HDL CHOLESTEROL 41 mg/dL; LDL CHOLESTEROL,CALCULATED 73 mg/dL; LDL/HDL RATIO 1.8 (<4.4); SODIUM 138 mmol/L (135-145); TOTAL PROTEIN 6.9 g/dL (6.7-8.2); VLDL CHOLESTEROL 28 mg/dL
== END 2019-12-04 23:59 | disposition home or self-care (01) ==
LOC: LAB.WCP 14:05
PROVIDERS: ATTEND Physician Assistant
DX: E78.5 Hyperlipidemia, unspecified (principal); Z79.899 Other long term (current) drug therapy; E03.9 Hypothyroidism, unspecified
CPT/HCPCS: 36415; 80053; 80061; 83036; 83721; 84443; 85025

== ENCOUNTER 2020-01-01 11:06 | Outpatient (CLI) | payer MEDICARE, MEDICAID ==
--- NOTE | 2020-01-01 16:20 | XRAY Report ---
PROCEDURE: Knee 4 View BILAT INDICATIONS: ARTHRITIS,RT KNEE TECHNIQUE: 4 views of the bilateral knee(s) were acquired. COMPARISON: None. FINDINGS: Bones: No fractures or dislocations. No suspicious bony lesions. Severe right and moderate to omar re left medial compartment narrowing. There is minimal bilateral lateral compartment narrowing. Moder ate bilateral patellofemoral compartment narrowing is present. Periarticular osteophytes are present. No erosions. Soft tissues: Mild bilateral effusions. No suspicious soft tissue calcifications. IMPRESSION: Tricompartmental osteoarthritic degenerative changes slightly more prominent on the righ t as above. Reviewed by: Roxi Bangura MD on 01/01/2020 4:18 PM PDT Approved by: Roxi Bangura MD on 01/01/2020 4:18 PM PDT Station ID: [id number]
== END 2020-01-01 11:07 | disposition home or self-care (01) ==
LOC: DI 11:06
PROVIDERS: ATTEND Orthopaedic Surgery
DX: M17.0 Bilateral primary osteoarthritis of knee (principal)

== ENCOUNTER 2020-04-10 15:53 | Outpatient (CLI) | payer MEDICARE, MEDICAID ==
[2020-04-10 16:53] VITALS: BP 120/73
--- NOTE | 2020-04-10 16:53 | SLEEP CARE CONSULTATION ---
Information from patient questionnaire entered by Latisha Maria. I have reviewed and concur with the information entered by Latisha Maria. This document represents the service I personally performed and the decisions made by me, Elo Malin ARNP. History of Present Illness Service Date and Time: 04/10/2020 1553 Reason for Visit: New patient, Other Chief Complaint: reports: Insomnia (not getting a lot of sleep), Unrefreshed sleep, Excessive daytime sleepiness, Fatigue (sometimes), Other (Dr. corbin). denies: Snoring, Observed pauses in breathing (lives alone), Frequent awakenings at night Date of Onset: 1 year Usual bedtime: 10:00 Time it takes to fall asleep: 8 to 10 hours; only sleeps 2 hours a night Snores at night: No Observed to quit breathing while asleep: No Sleeps alone due to snoring: No Number of times waking at night: 1 Reasons for waking at night: reports: Bathroom. denies: Choking, Snoring, Gasping for air Toss, Turn, or Twitch while sleeping: Yes Recalls having dreams: Yes Usually gets out of bed at: 10:00 Feels refreshed in the morning: Yes (sometimes) Morning headache: No Sleepy or fatigued during the day: Yes Ever fallen asleep while driving: No Takes day naps: Yes (4 times a week for an hour at a time) Dreams during day naps: No (?) Prior sleep studies: No Additional HPI information: I had the pleasure of seeing ARBEN SILVEIRA today regarding the possibility of her having a sleep disorder. Her current complaints are not able to sleep more than 2 hours on average a night (insomnia), unrefreshed sleep and excessive daytime sleepiness. She states in the last 6 months she has been having difficulty going to sleep at night. It takes her on average about 8 hours to go to sleep. She thought it was just because she was aging and she also has problems with depression and is on medication. She has had a few times that she dozed off with her eyes open when sitting at a stoplight. She has not had any accidents. Her PCP thought it would be good to have her checked out for sleep apnea since she is not sleeping well to see if this might be contributing to her problem. She has gained a little weight over the last 6 months as well. - Parasomnia Symptoms Ever been unable to move upon waking from sleep: No Walks in sleep: Yes (did as a child, doesn't think she does anymore) Talks in sleep: Yes (as a child, thinks she still does) Ever acted out dreams in sleep: No Ever felt weak in the knees when startled or emotional: No Bothered by creepy, crawly, restless sensations in legs: Yes (but that hasn't been since a teenager) Problems with memory or concentration: Yes Subjective Initial [place] Sleepiness Scale score: 12 (2019) Past Medical History Past Medical History: reports: Hypothyroidism, Anxiety, Depression. 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 Patient is and lives in [place]. Have you smoked in the past 12 months: Yes Cigarettes per day (20/pack): 3 Alcohol use: No Caffeine use: Yes Caffeine amount and frequency: Daily, 2 cups coffee Family History Family history of sleep disordered breathing: No Allergies and Home Medications Drug allergies reviewed: Yes (see list) Home medication list reviewed: Yes (see list) Review of Systems Cardiovascular: denies: high blood pressure, palpitations, chest pain, irregular heart rate or pulse, leg or foot swelling Respiratory: denies: shortness of breath Gastrointestinal: denies: heartburn, difficulty swallowing Urinary: reports: frequency Neurological: denies: headaches, seizure, head trauma, speech dysfunction, gait or balance problems Psychiatric: reports: anxiety, depression. denies: mood disorder, claustrophobia Ear/Nose/Throat: reports: wisdom teeth removed. denies: nasal congestion, sinus problems, nose bleeds, dry mouth/throat, injury to nose, tonsillectomy Endocrine: reports: thyroid disease Musculoskeletal: reports: joint pain, joint swelling (right knee). denies: muscle pain or cramping, mobility problems Immunologic: reports: allergies to food or environment (bee pollen) Physical Exam Blood Pressure: 120/73 Cuff size: wrist Heart Rate: 72 O2 Saturation: 96 Height: 5 ft Weight: 131 lb Body Mass Index: 25.5 BMI Classification: Overweight HEENT: No craniofacial malformation Nostrils: patent to airflow Turbinates: normal Septum: midline Mouth and throat: narrow oropharynx Soft palate: normal Hard palate: normal Uvula: normal Uvula visualization: 25% Mallampati Class III Tongue: normal in size Tonsils: 1+ Chin and jaw: normal size and position Neck: normal w/o lymphadenopathy or thyromegaly Heart: regular rate and rhythm Lungs: clear bilaterally Impression and Plan 1. Suspected Obstructive Sleep Apnea-Hypopnea Syndrome, as suggested by a history of unrefreshed sleep, and excessive daytime sleepiness. She has a history of depression. I reviewed with patient that a narrow oropharynx and obesity are common predisposing factors for obstructive sleep apnea-hypopnea syndrome. I recommend proceeding to polysomnography to confirm the diagnosis and to assess severity. If the patient has significant sleep disordered breathing, a manual CPAP titration study will also be performed to find the optimal treatment pressure. I informed the patient of what the sleep studies involve and after some discussion, obtained agreement to proceed. The pathophysiology of obstructive sleep apnea-hypopnea syndrome was discussed with the patient and health risks of cardiovascular and cerebrovascular disease if not treated. Risks of drowsy driving discussed in detail and patient advised to avoid long distance driving and to toe puller at the first sign of drowsiness. Patient agre ed to plan. [facility] drowsy driving brochure given. * Schedule polysomnography +- manual CPAP titration study. * Avoid long distance driving or driving when feeling sleepy. * Avoid sedative and muscle relaxant around bedtime. * Attempt to lose weight. * Review instructions provided by trained office staff on how to prepare for the sleep study. * Return for follow-up after sleep study completed. Counseling Topics: Weight loss health impact Visit Type: In Office Time Spent with Patient (minutes): 33 Provider Statement: I spent 100% of the Face to Face Visit with the patient with greater than 50% spent counseling the patient and coordination of care.
== END 2020-04-10 15:54 | disposition home or self-care (01) ==
LOC: SC 15:53
PROVIDERS: ATTEND Nurse Practitioner Family
DX: G47.10 Hypersomnia, unspecified (principal); G47.8 Other sleep disorders; G47.00 Insomnia, unspecified; F32.9 Major depressive disorder, single episode, unspecified; E66.3 Overweight; Z68.25 Body mass index [BMI] 25.0-25.9, adult
CPT/HCPCS: 99203; G0463; 99212

== ENCOUNTER 2020-05-26 20:30 | Outpatient (CLI) | payer MEDICARE, MEDICAID | END 2020-05-26 20:31 | disposition home or self-care (01) | LOC: COV 20:30 | PROVIDERS: ATTEND Family Medicine | DX: R50.9 Fever, unspecified (principal); R53.83 Other fatigue; R19.7 Diarrhea, unspecified; R43.8 Other disturbances of smell and taste; Z20.828 Contact with and (suspected) exposure to other viral communicable diseases ==

== ENCOUNTER 2020-08-27 08:00 | Outpatient (CLI) | payer MEDICARE, MEDICAID ==
[2020-08-27 18:28] LABS: BASOPHILS % (AUTO) 0.4 %; EOSINOPHILS # (AUTO) 0.1 10^3/uL (0.0-0.7); EOSINOPHILS % (AUTO) 1.1 %; HCT - HEMATOCRIT 42.7 % (37.0-47.0); HGB - HEMOGLOBIN 13.7 g/dL (12.0-16.0); LYMPHOCYTES # (AUTO) 1.7 10^3/uL (1.5-3.5); LYMPHOCYTES % (AUTO) 24.1 %; MEAN CORPUSCULAR HEMOGLOBIN 31.4 pg (27.0-31.0); MEAN CORPUSCULAR HGB CONC 32.1 g/dL (32.0-36.0); MEAN CORPUSCULAR VOLUME 97.9 fL (81.0-99.0); MEAN PLATELET VOLUME 11.7 fL (7.9-10.8); MONOCYTES # (AUTO) 0.6 10^3/uL (0.0-1.0); MONOCYTES % (AUTO) 8.4 %; NEUTROPHILS # (AUTO) 4.7 10^3/uL (1.5-6.6); NEUTROPHILS % (AUTO) 65.7 %; PLT - PLATELET COUNT 267 10^3/uL (130-450); RED BLOOD COUNT 4.36 10^6/uL (4.20-5.40); RED CELL DISTRIBUTION WIDTH 13.6 % (12.0-15.0); WHITE BLOOD COUNT 7.2 x10^3/uL (4.8-10.8)
[2020-08-27 19:05] LABS: ALBUMIN 4.1 g/dL (3.2-5.5); ALBUMIN/GLOBULIN RATIO 1.2 (1.0-2.2); ALKALINE PHOSPHATASE 71 IU/L (42-121); ALT ALANINE AMINOTRANSFERASE 19 IU/L (10-60); AST ASPARTATE AMINOTRANSFERASE 19 IU/L (10-42); BILIRUBIN,TOTAL 0.9 mg/dL (0.2-1.0); BUN - BLOOD UREA NITROGEN 32 mg/dL (6-20); CALCIUM 9.6 mg/dL (8.5-10.3); CARBON DIOXIDE - CO2 22 mmol/L (21-32); CHLORIDE 108 mmol/L (101-111); CHOL/HDL RATIO 3.7 (<4.4); CHOLESTEROL 229 mg/dL; CREATININE 0.9 mg/dL (0.4-1.0); GFR - MDRD 61 (>89); GLUCOSE 99 mg/dL (70-100); HDL CHOLESTEROL 62 mg/dL; LDL CHOLESTEROL,CALCULATED 142 mg/dL; LDL/HDL RATIO 2.3 (<4.4); POTASSIUM 3.7 mmol/L (3.5-5.0); SODIUM 139 mmol/L (135-145); TOTAL PROTEIN 7.6 g/dL (6.7-8.2); TRIGLYCERIDES 123 mg/dL; VLDL CHOLESTEROL 25 mg/dL
[2020-08-27 19:06] LABS: THYROID STIMULATING HORMONE 2.09 uIU/mL (0.34-5.60)
[2020-08-27 20:21] LABS: ESTIMATED AVERAGE GLUCOSE 108 mg/dL (70-100); HEMOGLOBIN A1c% 5.4 % (4.27-6.07)
== END 2020-08-27 23:59 | disposition home or self-care (01) ==
LOC: LAB.WCP 08:00
PROVIDERS: ATTEND Nurse Practitioner Family
DX: E78.5 Hyperlipidemia, unspecified (principal); E03.9 Hypothyroidism, unspecified
CPT/HCPCS: 36415; 80053; 80061; 83036; 83721; 84443; 85025

== ENCOUNTER 2021-07-13 10:38 | Outpatient (CLI) | payer MEDICAID, MEDICARE, OTHER ==
[2021-07-13 18:29] LABS: BASOPHILS # (AUTO) 0.1 10^3/uL (0.0-0.1); BASOPHILS % (AUTO) 0.7 %; EOSINOPHILS # (AUTO) 0.1 10^3/uL (0.0-0.7); EOSINOPHILS % (AUTO) 1.6 %; HCT - HEMATOCRIT 41.7 % (37.0-47.0); HGB - HEMOGLOBIN 13.4 g/dL (12.0-16.0); LYMPHOCYTES # (AUTO) 1.4 10^3/uL (1.5-3.5); LYMPHOCYTES % (AUTO) 20.3 %; MEAN CORPUSCULAR HEMOGLOBIN 31.2 pg (27.0-31.0); MEAN CORPUSCULAR HGB CONC 32.1 g/dL (32.0-36.0); MEAN PLATELET VOLUME 12.8 fL (7.9-10.8); MONOCYTES # (AUTO) 0.5 10^3/uL (0.0-1.0); MONOCYTES % (AUTO) 7.6 %; NEUTROPHILS # (AUTO) 4.9 10^3/uL (1.5-6.6); NEUTROPHILS % (AUTO) 69.4 %; PLT - PLATELET COUNT 236 10^3/uL (130-450); RED CELL DISTRIBUTION WIDTH 12.9 % (12.0-15.0)
[2021-07-13 18:59] LABS: ALBUMIN 3.9 g/dL (3.2-5.5); ALBUMIN/GLOBULIN RATIO 1.2 (1.0-2.2); BILIRUBIN,TOTAL 0.7 mg/dL (0.2-1.0); CALCIUM 9.5 mg/dL (8.5-10.3); POTASSIUM 4.1 mmol/L (3.5-5.0); TOTAL PROTEIN 7.1 g/dL (6.7-8.2)
[2021-07-13 19:51] LABS: CHOL/HDL RATIO 2.5 (<4.4); CHOLESTEROL 147 mg/dL; HDL CHOLESTEROL 59 mg/dL; LDL CHOLESTEROL,CALCULATED 67 mg/dL; LDL/HDL RATIO 1.1 (<4.4); TRIGLYCERIDES 106 mg/dL; VLDL CHOLESTEROL 21 mg/dL
[2021-07-13 20:28] LABS: THYROID STIMULATING HORMONE 3.42 uIU/mL (0.34-5.60)
[2021-07-13 21:38] LABS: ESTIMATED AVERAGE GLUCOSE 105 mg/dL (70-100); HEMOGLOBIN A1c% 5.3 % (4.27-6.07)
[2021-07-15 09:41] LABS: HEPATITIS B SURFACE ANTIGEN NON-REACTIVE (NON-REACTIVE)
== END 2021-07-13 10:39 | disposition home or self-care (01) ==
LOC: LAB.N 10:38
PROVIDERS: ATTEND Orthopaedic Surgery
DX: Z01.812 Encounter for preprocedural laboratory examination (principal); R73.9 Hyperglycemia, unspecified; N39.0 Urinary tract infection, site not specified; R53.82 Chronic fatigue, unspecified; E78.5 Hyperlipidemia, unspecified; E03.9 Hypothyroidism, unspecified; B19.20 Unspecified viral hepatitis C without hepatic coma
CPT/HCPCS: 36415; 80053; 80061; 80306; 81001; 83036; 83721; 84443; 85025; 87086; 87340; 87522; 87902

== ENCOUNTER 2021-07-15 09:10 | Outpatient (CLI) | payer OTHER | END 2021-07-15 09:11 | disposition home or self-care (01) | LOC: RT 09:10 | PROVIDERS: ATTEND Orthopaedic Surgery | DX: Z01.810 Encounter for preprocedural cardiovascular examination (principal) | CPT/HCPCS: 93005 ==

== ENCOUNTER 2021-07-15 20:30 | Outpatient (CLI) | payer MEDICARE, OTHER | END 2021-07-15 20:31 | disposition critical access hospital (66) | LOC: EMS 20:30 | DX: R41.82 Altered mental status, unspecified (principal); R47.81 Slurred speech | CPT/HCPCS: A0425; A0429 ==

== ENCOUNTER 2021-07-15 20:48 | Emergency (ER) | payer MEDICARE, MEDICAID ==
--- NOTE | 2021-07-15 21:23 | ED Physician Documentation ---
History of Present Illness - Stated complaint Stated Complaint: ETOH - Chief complaint Chief Complaint: General - History obtained from History obtained from: Patient - Additonal information Additional information: 75yF with pmh depression and anxiety presents after being found intoxicated in the bathroom of a cafe/bar in [place]. she states she lives alone and was feeling depressed this evening and went to a bar and had several double shots of rum and coke. Denies HT, denies any pain or injury. AOX3. clinically intoxicated. denies SI/HI/AVH Review of Systems Unable to obtain: Intoxicated PD PAST MEDICAL HISTORY - Past Medical History Cardiovascular: None Respiratory: None Endocrine/Autoimmune: HyPOthyroidism GI: Colon polyps : None HEENT: Chronic hearing loss Psych: Anxiety, Panic attacks, Claustrophobia Musculoskeletal: Osteoarthritis Derm: None - Past Surgical History General: Colonoscopy Ortho: Hip replacement /[employer]: 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 - Present Medications Home Medications: Ambulatory Orders Medication Instructions Recorded Confirmed Duloxetine HCl [Cymbalta] 60 mg PO DAILY 02/15/17 09/05/18 Eszopiclone [Lunesta] 3 mg PO DAILY 02/15/17 09/05/18 Gabapentin [Neurontin] 400 mg PO HS 02/15/17 09/05/18 Lorazepam [Ativan] 2 mg PO DAILY PM 02/15/17 09/05/18 Multivitamin [Multiple Vitamins] 1 each PO DAILY 02/15/17 09/05/18 [place]-3 Fatty Acids/Fish Oil [Fish 1 each PO DAILY 02/15/17 09/05/18 Oil 1,000 mg Softgel] Prazosin HCl [Minipress] 2 mg PO DAILY 02/15/17 09/05/18 Levothyroxine Sodium [Synthroid] 88 mcg PO DAILY 07/15/21 07/15/21 Pantoprazole Sodium 40 mg PO DAILY 07/15/21 07/15/21 - Allergies Allergies/Adverse Reactions: Allergies Allergy/AdvReac Type Severity Reaction Status Date / Time bee pollen Allergy Edema Verified 07/15/21 21:00 diphenhydramine HCl * Allergy Itching Verified 07/15/21 21:00 [From Benadryl] Penicillins Allergy Anaphylaxis Verified 07/15/21 21:00 codeine AdvReac Nausea Verified 07/15/21 21:00 Sulfa (Sulfonamide AdvReac Unknown Verified 02/03/22 21:00 Antibiotics) - Social History Does the pt smoke?: Yes Smoking Status: Current every day smoker Does the pt drink ETOH?: No Does the pt have substance abuse?: No - Immunizations Immunizations are current?: Yes - POLST Patient has POLST: No PD ED PE NORMAL - Vitals Vital signs reviewed: Yes - General General: Alert and oriented X 3, No acute distress, Other (elderly appearing) - HEENT HEENT: Atraumatic, PERRL, EOMI - Neck Neck: Supple, no meningeal sign - Cardiac Cardiac: RRR - Respiratory Respiratory: No respiratory distress, Clear bilaterally - Abdomen Abdomen: Non tender, Non distended - Derm Derm: Normal color, Warm and dry - Neuro Neuro: Alert and oriented X 3, No motor deficit, No sensory deficit, Other (clinically intoxicated) - Psych Psych: Normal affect, Other (clinically intoxicated) Results - Vitals Vitals: Vital Signs - 24 hr 07/15/21 07/16/21 20:45 04:31 Temperature 36.0 C L 36.8 C Heart Rate 83 84 Respiratory 18 14 Rate Blood Pressure 126/76 135/66 H O2 Saturation 99 95 Oxygen O2 Source Room air PD MEDICAL DECISION MAKING - ED course ED course: 75yF presents after being found intoxicated in bathroom of bar in [place]. patient without complaints at this time. clinically intoxicated. will reassess for sobriety. 6:30am- patient clinically sober, ambulatory without difficulty, expressing regret for her alcohol intake last night. states she is not a daily drinker. counseling provided and I encouraged her to follow up with her PMD. she feels safe to go home. return precautions given. Departure - Departure Disposition: 01 Home, Self Care Clinical Impression: Alcohol intoxication Condition: Stable Instructions: ED Alcohol Intoxication Comments: You were seen in the emergency department for alcohol intoxication. Please try to modulate your alcohol intake carefully, follow up with your primary doctor and return to the ED if you have other concerns.
[2021-07-16] MEDS ORDERED: ACETAMINOPHEN 325 MG TABLET PO STA (01:52)
[2021-07-16 04:34] VITALS: BP 135/66
== END 2021-07-16 06:56 | disposition home or self-care (01) ==
LOC: EDUNIT# → ED 20:48
DX: F10.129 Alcohol abuse with intoxication, unspecified (principal); F17.200 Nicotine dependence, unspecified, uncomplicated; Z01.810 Encounter for preprocedural cardiovascular examination
CPT/HCPCS: 93005; 99281; 99283; A9270

== ENCOUNTER 2021-08-11 22:48 | Outpatient (CLI) | payer MEDICARE, MEDICAID | END 2021-08-11 22:49 | disposition critical access hospital (66) | LOC: EMS 22:48 | DX: R55 Syncope and collapse (principal); I95.9 Hypotension, unspecified | CPT/HCPCS: A0425; A0427 ==

== ENCOUNTER 2021-08-11 23:04 | Emergency (ER) | payer MEDICARE, MEDICAID ==
[2021-08-11 23:41] LABS: BASOPHILS % (AUTO) 0.3 %; EOSINOPHILS # (AUTO) 0.1 10^3/uL (0.0-0.7); EOSINOPHILS % (AUTO) 0.7 %; HCT - HEMATOCRIT 33.2 % (37.0-47.0); HGB - HEMOGLOBIN 10.9 g/dL (12.0-16.0); LYMPHOCYTES # (AUTO) 1.3 10^3/uL (1.5-3.5); LYMPHOCYTES % (AUTO) 14.1 %; MEAN CORPUSCULAR HEMOGLOBIN 31.7 pg (27.0-31.0); MEAN CORPUSCULAR HGB CONC 32.8 g/dL (32.0-36.0); MEAN CORPUSCULAR VOLUME 96.5 fL (81.0-99.0); MEAN PLATELET VOLUME 11.1 fL (7.9-10.8); MONOCYTES % (AUTO) 10.1 %; NEUTROPHILS # (AUTO) 7.1 10^3/uL (1.5-6.6); NEUTROPHILS % (AUTO) 74.6 %; PLT - PLATELET COUNT 183 10^3/uL (130-450); RED BLOOD COUNT 3.44 10^6/uL (4.20-5.40); RED CELL DISTRIBUTION WIDTH 12.5 % (12.0-15.0); WHITE BLOOD COUNT 9.5 x10^3/uL (4.8-10.8)
[2021-08-11 23:52] LABS: ALBUMIN 2.9 g/dL (3.2-5.5); ALBUMIN/GLOBULIN RATIO 1.1 (1.0-2.2); BILIRUBIN,TOTAL 0.5 mg/dL (0.2-1.0); CALCIUM 8.1 mg/dL (8.5-10.3); CREATININE 1.1 mg/dL (0.4-1.0); POTASSIUM 3.6 mmol/L (3.5-5.0); TOTAL PROTEIN 5.6 g/dL (6.7-8.2)
[2021-08-12] MEDS ORDERED: SODIUM CHLORIDE 0.9% 500 ML IV STA (00:09)
--- NOTE | 2021-08-12 01:29 | ED Physician Documentation ---
History of Present Illness - Stated complaint Stated Complaint: SYNCOPE - Chief complaint Chief Complaint: Neuro - History obtained from History obtained from: Patient - Additonal information Additional information: 75yF presents with syncopal episode this evening while walking to the bathroom, witnessed by friend who helped ease her to the ground. patient just underwent knee replacement and reports she has been feeling weak since surgery. denies fever, cp, soa, cough, fnd. Review of Systems Ten Systems: 10 systems reviewed and negative Constitutional: denies: Fever, Chills Cardiac: denies: Chest pain / pressure Respiratory: denies: Dyspnea Musculoskeletal: denies: Neck pain, Back pain Neurologic: reports: Syncope. 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 - Present Medications Home Medications: Ambulatory Orders Medication Instructions Recorded Confirmed Duloxetine HCl [Cymbalta] 60 mg PO DAILY 02/15/17 08/11/21 Eszopiclone [Lunesta] 3 mg PO DAILY 02/15/17 08/11/21 Gabapentin [Neurontin] 400 mg PO HS 02/15/17 08/11/21 Lorazepam [Ativan] 2 mg PO DAILY PM 02/15/17 08/11/21 Multivitamin [Multiple Vitamins] 1 each PO DAILY 02/15/17 08/11/21 [place]-3 Fatty Acids/Fish Oil [Fish 1 each PO DAILY 02/15/17 08/11/21 Oil 1,000 mg Softgel] Prazosin HCl [Minipress] 2 mg PO DAILY 02/15/17 08/11/21 Levothyroxine Sodium [Synthroid] 88 mcg PO DAILY 07/15/21 08/11/21 Pantoprazole Sodium 40 mg PO DAILY 07/15/21 08/11/21 - Allergies Allergies/Adverse Reactions: Allergies Allergy/AdvReac Type Severity Reaction Status Date / Time bee pollen Allergy Edema Verified 08/11/21 23:18 diphenhydramine HCl * Allergy Itching Verified 08/11/21 23:18 [From Benadryl] Penicillins Allergy Anaphylaxis Verified 08/11/21 23:18 codeine AdvReac Nausea Verified 08/11/21 23:18 haloperidol [From Haldol] AdvReac Unknown Verified 08/11/21 23:22 Sulfa (Sulfonamide AdvReac Unknown Verified 08/11/21 23:18 Antibiotics) - Social History Does the pt smoke?: Yes Smoking Status: Current every day smoker Does the pt drink ETOH?: No Does the pt have substance abuse?: No - Immunizations Immunizations are current?: Yes - POLST Patient has POLST: No PD ED PE NORMAL - Vitals Vital signs reviewed: Yes - General General: Alert and oriented X 3, No acute distress, Well developed/nourished - HEENT HEENT: Atraumatic, PERRL, EOMI - Neck Neck: Supple, no meningeal sign - Cardiac Cardiac: RRR - Respiratory Respiratory: No respiratory distress, Clear bilaterally - Abdomen Abdomen: Non tender, Non distended - Derm Derm: Normal color, Warm and dry - Extremities Extremities: No deformity - Neuro Neuro: Alert and oriented X 3, 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, No motor deficit, No sensory deficit, Normal speech Results - Vitals Vitals: Vital Signs - 24 hr 08/11/21 08/11/21 08/11/21 23:14 23:41 23:45 Temperature 37.1 C Heart Rate 71 92 Heart Rate [ 74 Sitting] Heart Rate [ 78 Supine] Respiratory 15 16 Rate Blood Pressure 90/62 90/62 Blood Pressure 103/59 L [Sitting] Blood Pressure 100/63 [Supine] O2 Saturation 94 94 08/12/21 00:45 Temperature 36.6 C Heart Rate 78 Heart Rate [ Sitting] Heart Rate [ Supine] Respiratory 16 Rate Blood Pressure 95/52 L Blood Pressure [Sitting] Blood Pressure [Supine] O2 Saturation 94 Oxygen O2 Source Room air - EKG (time done) 2330 Rate: Rate (enter#) (73) Rhythm: NSR Bonita: Normal Intervals: Normal FL QRS: Normal Ischemia: Normal ST segments - Labs Labs: Laboratory Tests 08/11/21 08/11/21 08/11/21 23:34 23:34 23:34 WBC 9.5 RBC 3.44 L Hgb 10.9 L Hct 33.2 L MCV 96.5 MCH 31.7 H MCHC 32.8 RDW 12.5 Plt Count 183 MPV 11.1 H Neut # (Auto) 7.1 H Lymph # (Auto) 1.3 L Saunders # (Auto) 1.0 Eos # (Auto) 0.1 Baso # (Auto) 0.0 Absolute Nucleated RBC 0.00 Nucleated RBC % 0.0 D-Dimer Sodium 136 Potassium 3.6 Chloride 107 Carbon Dioxide 23 Anion Gap 6.0 BUN 20 Creatinine 1.1 H Estimated GFR (MDRD) 49 L Glucose 147 H Calcium 8.1 L Total Bilirubin 0.5 AST 18 ALT 16 Alkaline Phosphatase 62 Troponin I High Sens 4.5 Total Protein 5.6 L Albumin 2.9 L Globulin 2.7 Albumin/Globulin Ratio 1.1 Lipase 31 08/12/21 00:17 WBC RBC Hgb Hct MCV MCH MCHC RDW Plt Count MPV Neut # (Auto) Lymph # (Auto) Saunders # (Auto) Eos # (Auto) Baso # (Auto) Absolute Nucleated RBC Nucleated RBC % D-Dimer 203.3 Sodium Potassium Chloride Carbon Dioxide Anion Gap BUN Creatinine Estimated GFR (MDRD) Glucose Calcium Total Bilirubin AST ALT Alkaline Phosphatase Troponin I High Sens Total Protein Albumin Globulin Albumin/Globulin Ratio Lipase PD MEDICAL DECISION MAKING - ED course ED course: 75yF presents with syncopal episode, found to have drop in Hb from 13.4 to 10.9 s/p knee surgery. ems reported she was orthostatic in the field. patient received 500cc ivf here in ed and is asymptomatic at present. d/w patient need for adequate hydration and prompt f/u with her surgeon. She has an appointment this monday in [place] with her surgeon. will also plan to f/u with pcp. strict return precautions given. Departure - Departure Disposition: , Self Care Clinical Impression: Postoperative anemia, Syncope Condition: Stable Instructions: Anemia Comments: You were seen in the emergency department for evaluation after fainting. Your blood levels are showing anemia after having had knee surgery. You need to follow-up with your surgeon this Monday. Your hemoglobin went from 13.4 on 07/15/21 to 10.9 today (08/12/21). We gave you 500 mL of IV fluids to help hydrate, and you should continue to drink lots of fluids at home. Return to the ED if you have new or worsening symptoms or other concerns.
[2021-08-12 01:35] VITALS: BP 107/56
== END 2021-08-12 01:35 | disposition home or self-care (01) ==
LOC: EDUNIT# → ED 23:04
DX: R55 Syncope and collapse (principal); D64.89 Other specified anemias; F17.200 Nicotine dependence, unspecified, uncomplicated
CPT/HCPCS: 36415; 80053; 83690; 84484; 85025; 85379; 93005; 99282; 99284

== ENCOUNTER 2022-02-07 10:25 | Outpatient (CLI) | payer MEDICARE, OTHER ==
[2022-02-07 12:04] LABS: BASOPHILS # (AUTO) 0.1 10^3/uL (0.0-0.1); BASOPHILS % (AUTO) 0.5 %; EOSINOPHILS # (AUTO) 0.1 10^3/uL (0.0-0.7); EOSINOPHILS % (AUTO) 0.7 %; HCT - HEMATOCRIT 42.4 % (37.0-47.0); HGB - HEMOGLOBIN 13.9 g/dL (12.0-16.0); LYMPHOCYTES # (AUTO) 1.7 10^3/uL (1.5-3.5); LYMPHOCYTES % (AUTO) 17.4 %; MEAN CORPUSCULAR HEMOGLOBIN 31.4 pg (27.0-31.0); MEAN CORPUSCULAR HGB CONC 32.8 g/dL (32.0-36.0); MEAN CORPUSCULAR VOLUME 95.7 fL (81.0-99.0); MONOCYTES # (AUTO) 0.7 10^3/uL (0.0-1.0); NEUTROPHILS # (AUTO) 7.2 10^3/uL (1.5-6.6); NEUTROPHILS % (AUTO) 74.1 %; PLT - PLATELET COUNT 300 10^3/uL (130-450); RED BLOOD COUNT 4.43 10^6/uL (4.20-5.40); RED CELL DISTRIBUTION WIDTH 12.9 % (12.0-15.0); WHITE BLOOD COUNT 9.7 x10^3/uL (4.8-10.8)
[2022-02-07 13:24] LABS: ALBUMIN 4.3 g/dL (3.2-5.5); ALBUMIN/GLOBULIN RATIO 1.2 (1.0-2.2); BILIRUBIN,TOTAL 0.4 mg/dL (0.2-1.0); CALCIUM 9.6 mg/dL (8.5-10.3); CREATININE 1.1 mg/dL (0.4-1.0); POTASSIUM 4.5 mmol/L (3.5-5.0); TOTAL PROTEIN 7.9 g/dL (6.7-8.2)
[2022-02-10 12:09] LABS: HCV AB >11.0 s/co ratio (0.0-0.9); HCV IU/ML HCV Not Detected IU/mL (.)
== END 2022-02-07 10:26 | disposition home or self-care (01) ==
LOC: LAB.N 10:25
PROVIDERS: ATTEND Nurse Practitioner Family
DX: Z01.84 Encounter for antibody response examination (principal); D64.9 Anemia, unspecified; N18.2 Chronic kidney disease, stage 2 (mild)
CPT/HCPCS: 36415; 80053; 85025; 86803; 87522

== ENCOUNTER 2022-03-10 13:14 | Outpatient (CLI) | payer MEDICAID, MEDICARE, OTHER ==
--- NOTE | 2022-03-10 16:01 | CT Report ---
PROCEDURE: Low Dose Lung Cancer Screen INDICATIONS: CIGARETTE SMOKER TECHNIQUE: Noncontrast low-dose axial images were acquired from the pulmonary apices to the posterior costophren ic angles. Multiplanar MIP reformats were then reconstructed. For radiation dose reduction, the follo wing was used: automated exposure control, adjustment of mA and/or kV according to patient size. COMPARISON: CT chest 03/01/2017, chest x-ray 06/21/2018 FINDINGS: Image quality: Excellent. Lungs and pleura: No nodules, consolidations or effusions. No pneumothorax. No interval change. Mediastinum: Heart size is normal. No pericardial effusion. No mediastinal adenopathy by size crit eria. Thoracic aorta and central pulmonary arteries are normal in size. Esophagus is normal in fidel gerda. No hiatal hernia. Bones and chest wall: No suspicious bony lesions. No vertebral body compression fractures. No axil cuauhtemoc or supraclavicular adenopathy by size criteria. The thyroid is not well visualized. Abdomen: Visualized upper abdomen solid organs and bowel loops appear normal in the absence of contr ast. IMPRESSION: No visualized pulmonary nodules. Stable interval exam. Lung rads category 1. Continue annual screening. CLINICAL RECOMMENDATION STATEMENTS: In patients <35 years with an ITN detected on CT, MRI, or extrathyroidal ultrasound, the Committee re commends further evaluation with dedicated thyroid ultrasound if the nodule is "e1 cm and has no susp icious imaging features, and if the patient has normal life expectancy. In patients "e35 years with an ITN detected on CT, MRI, or extrathyroidal ultrasound, the Committee r ecommends further evaluation with dedicated thyroid ultrasound if the nodule is "e1.5 cm and has no s uspicious imaging features, and if the patient has normal life expectancy. (ACR, 2014) Reviewed by: Roxi Bangura MD on 03/10/2022 4:00 PM PDT Approved by: Roxi Bangura MD on 03/10/2022 4:00 PM PDT Station ID: [id number]
== END 2022-03-10 13:15 | disposition home or self-care (01) ==
LOC: DI 13:14
PROVIDERS: ATTEND Nurse Practitioner Family
DX: Z12.2 Encounter for screening for malignant neoplasm of respiratory organs (principal); D64.9 Anemia, unspecified; F17.210 Nicotine dependence, cigarettes, uncomplicated

== ENCOUNTER 2022-03-10 13:15 | Outpatient (CLI) | payer MEDICAID, MEDICARE, OTHER ==
--- NOTE | 2022-03-11 11:30 | Mammography Report ---
BILATERAL DIGITAL SCREENING MAMMOGRAM 3D/2D: 03/10/2022 CLINICAL: Routine screening. Comparison is made to exams dated: 04/05/2018 mammogram, 03/16/2016 mammogram - [facility], 02/12/2015 mammogram - [facility], 06/11/2013 mammogram, and 06/03/2013 mammogr am - [facility]. Both breasts are almost entirely fatty (category a/<25% glandular tissue). There are benign calcifications in both breasts. No significant masses, calcifications, or other findings are seen in either breast. There has been no significant interval change. IMPRESSION: BENIGN There is no mammographic evidence of malignancy. A 1 year screening mammogram is recommended. Based on the Tyrer Cuzick model (a risk assessment model) the patients lifetime risk is 4.4% and her 10 year risk is 4.4%. According to the ACR, ACS, and NCCN guidelines, an annual breast MRI exam toan g with mammogram is recommended if the patients lifetime risk is 20% or greater. This exam was interpreted at Station ID: [id number]. NOTE: For mammograms, a report in lay terms will be sent to the patient. Approximately 15% of breast malignancies will not be visualized mammographically. In the management of a palpable breast mass, a negative mammogram must not discourage biopsy of a clinically suspicious lesion. Electronically Signed By: Breana forte/sarahirad:03/10/2022 15:24:02 ACR BI-RADS Category 2: Benign Finding(s) 3342F PARENCHYMAL PATTERN: (F) - The breast(s) demonstrate(s) diffuse fatty replacement. BI-RADS CATEGORY: (2) - 2 RECOMMENDATION: (ANNUAL) - Recommend routine annual screening mammography. [id number] 1 year screening LATERALITY: (B)
== END 2022-03-10 13:16 | disposition home or self-care (01) ==
LOC: DI 13:15
PROVIDERS: ATTEND Nurse Practitioner Family
DX: Z12.31 Encounter for screening mammogram for malignant neoplasm of breast (principal)

== ENCOUNTER 2022-05-06 20:47 | Outpatient (CLI) | payer MEDICARE | END 2022-05-06 20:48 | disposition EMS.NT | LOC: EMS 20:47 | DX: S50.812A Abrasion of left forearm, initial encounter (principal); X58.XXXA Exposure to other specified factors, initial encounter; Z72.89 Other problems related to lifestyle ==

== ENCOUNTER 2022-07-27 10:45 | Outpatient (CLI) | payer MEDICARE ==
--- NOTE | 2022-07-27 13:10 | XRAY Report ---
PROCEDURE: Shoulder 3 View LT INDICATIONS: SHOULDER PAIN TECHNIQUE: 3 views of the shoulder were acquired. COMPARISON: None. FINDINGS: Bones: No fractures or dislocations. Moderate acromioclavicular joint osteoarthritic changes are see n with joint space narrowing, subchondral sclerosis and marginal osteophyte formation. Mild to modera te glenohumeral joint osteoarthritic changes also noted. No suspicious bony lesions. Visualized ribs appear intact. Soft tissues: No suspicious soft tissue calcifications. IMPRESSION: Moderate acromioclavicular joint osteoarthritis and mild to moderate glenohumeral joint osteoarthritis. No fracture or dislocation. No gross soft tissue abnormalities. Reviewed by: Rene Garcia MD on 07/27/2022 1:09 PM PST Approved by: Rene Garcia MD on 07/27/2022 1:09 PM PST Station ID: [id number]
--- NOTE | 2022-07-27 13:16 | XRAY Report ---
PROCEDURE: Cervical Spine Complete INDICATIONS: CERVIAL RACICULOPATHY TECHNIQUE: 5 views of the cervical spine acquired. COMPARISON: None. FINDINGS: Bones: No acute fracture or dislocation. 3 mm anterolisthesis of C4 on C5 and 5 mm anterolisthesis of C5 on C6 is seen. Degenerative endplate changes, loss of disc height and bilateral facet hypertrophi c changes are noted throughout cervical spine. Oblique images demonstrate right worse than left bilat eral neural foraminal narrowing at C5-6 and C6-7 levels. Soft tissues: No prevertebral soft tissue swelling. IMPRESSION: 1. Degenerative disc disease throughout cervical spine. Grade 1 anterolisthesis at C4-5 and C5-6 leve ls. 2. No acute fracture or dislocation. 3. Bilateral bony foraminal stenosis are seen at C5-6 and C6-7 levels worse on the right side. Reviewed by: Rene Garcia MD on 07/27/2022 1:15 PM PST Approved by: Rene Garcia MD on 07/27/2022 1:15 PM PST Station ID: [id number]
== END 2022-07-27 10:46 | disposition home or self-care (01) ==
LOC: DI 10:45
PROVIDERS: ATTEND Nurse Practitioner Family
DX: M19.012 Primary osteoarthritis, left shoulder (principal); M47.812 Spondylosis without myelopathy or radiculopathy, cervical region; M50.31 Other cervical disc degeneration, high cervical region; M48.02 Spinal stenosis, cervical region; M43.12 Spondylolisthesis, cervical region

== ENCOUNTER 2022-11-17 11:50 | Outpatient (CLI) | payer MEDICARE ==
[2022-11-17 17:38] LABS: BASOPHILS # (AUTO) 0.1 10^3/uL (0.0-0.1); BASOPHILS % (AUTO) 0.5 %; EOSINOPHILS # (AUTO) 0.3 10^3/uL (0.0-0.7); EOSINOPHILS % (AUTO) 3.3 %; HCT - HEMATOCRIT 41.2 % (37.0-47.0); HGB - HEMOGLOBIN 13.4 g/dL (12.0-16.0); LYMPHOCYTES # (AUTO) 1.8 10^3/uL (1.5-3.5); LYMPHOCYTES % (AUTO) 19.1 %; MEAN CORPUSCULAR HEMOGLOBIN 31.5 pg (27.0-31.0); MEAN CORPUSCULAR HGB CONC 32.5 g/dL (32.0-36.0); MEAN CORPUSCULAR VOLUME 96.7 fL (81.0-99.0); MEAN PLATELET VOLUME 11.9 fL (7.9-10.8); MONOCYTES # (AUTO) 0.8 10^3/uL (0.0-1.0); MONOCYTES % (AUTO) 8.4 %; NEUTROPHILS # (AUTO) 6.3 10^3/uL (1.5-6.6); NEUTROPHILS % (AUTO) 68.5 %; PLT - PLATELET COUNT 269 10^3/uL (130-450); RED BLOOD COUNT 4.26 10^6/uL (4.20-5.40); WHITE BLOOD COUNT 9.2 x10^3/uL (4.8-10.8)
[2022-11-17 18:07] LABS: ALBUMIN 4.2 g/dL (3.2-5.5); ALBUMIN/GLOBULIN RATIO 1.2 (1.0-2.2); ALKALINE PHOSPHATASE 74 IU/L (42-121); ALT ALANINE AMINOTRANSFERASE 21 IU/L (10-60); AST ASPARTATE AMINOTRANSFERASE 30 IU/L (10-42); BILIRUBIN,TOTAL 0.7 mg/dL (0.2-1.0); BUN - BLOOD UREA NITROGEN 16 mg/dL (6-20); CALCIUM 9.1 mg/dL (8.5-10.3); CARBON DIOXIDE - CO2 23 mmol/L (21-32); CHLORIDE 107 mmol/L (101-111); CHOL/HDL RATIO 4.1 (<4.4); CHOLESTEROL 185 mg/dL; CREATININE 1.2 mg/dL (0.4-1.0); GFR - MDRD 44 (>89); GLUCOSE 105 mg/dL (70-100); HDL CHOLESTEROL 45 mg/dL; LDL CHOLESTEROL,CALCULATED 74 mg/dL; LDL/HDL RATIO 1.6 (<4.4); POTASSIUM 4.6 mmol/L (3.5-5.0); SODIUM 138 mmol/L (135-145); TOTAL PROTEIN 7.7 g/dL (6.7-8.2); TRIGLYCERIDES 331 mg/dL; VLDL CHOLESTEROL 66 mg/dL
[2022-11-17 18:16] LABS: THYROID STIMULATING HORMONE 3.32 uIU/mL (0.34-5.60)
== END 2022-11-17 11:51 | disposition home or self-care (01) ==
LOC: LAB.N 11:50
PROVIDERS: ATTEND Nurse Practitioner Family
DX: E78.5 Hyperlipidemia, unspecified (principal); E03.9 Hypothyroidism, unspecified; N18.31 Chronic kidney disease, stage 3a; B19.20 Unspecified viral hepatitis C without hepatic coma
CPT/HCPCS: 36415; 80053; 80061; 83721; 84443; 85025; 87522

== ENCOUNTER 2022-12-12 11:18 | Outpatient (CLI) | payer MEDICARE | END 2022-12-12 23:59 | disposition critical access hospital (66) | LOC: EMS 11:18 | DX: S00.81XA Abrasion of other part of head, initial encounter (principal); R41.0 Disorientation, unspecified; R46.4 Slowness and poor responsiveness; R26.81 Unsteadiness on feet; W19.XXXA Unspecified fall, initial encounter; Y92.038 Other place in apartment as the place of occurrence of the external cause | CPT/HCPCS: A0425; A0429 ==

== ENCOUNTER 2022-12-12 11:42 | Emergency (ER) | payer MEDICARE ==
--- NOTE | 2022-12-12 12:09 | ED Physician Documentation ---
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 - Present Medications Home Medications: Ambulatory Orders Medication Instructions Recorded Confirmed Duloxetine HCl [Cymbalta] 60 mg PO DAILY 02/15/17 08/11/21 Eszopiclone [Lunesta] 3 mg PO DAILY 02/15/17 08/11/21 Gabapentin [Neurontin] 400 mg PO HS 02/15/17 08/11/21 Lorazepam [Ativan] 2 mg PO DAILY PM 02/15/17 08/11/21 Multivitamin [Multiple Vitamins] 1 each PO DAILY 02/15/17 08/11/21 [place]-3 Fatty Acids/Fish Oil [Fish 1 each PO DAILY 02/15/17 08/11/21 Oil 1,000 mg Softgel] Prazosin HCl [Minipress] 2 mg PO DAILY 02/15/17 08/11/21 Levothyroxine Sodium [Synthroid] 88 mcg PO DAILY 07/15/21 08/11/21 Pantoprazole Sodium 40 mg PO DAILY 07/15/21 08/11/21 - Allergies Allergies/Adverse Reactions: Allergies Allergy/AdvReac Type Severity Reaction Status Date / Time bee pollen Allergy Edema Verified 08/11/21 23:18 diphenhydramine HCl * Allergy Itching Verified 08/11/21 23:18 [From Benadryl] Penicillins Allergy Anaphylaxis Verified 08/11/21 23:18 codeine AdvReac Nausea Verified 08/11/21 23:18 haloperidol [From Haldol] AdvReac Unknown Verified 08/11/21 23:22 Sulfa (Sulfonamide AdvReac Unknown Verified 08/11/21 23:18 Antibiotics) - Social History Does the pt smoke?: Yes Smoking Status: Current every day smoker Does the pt drink ETOH?: No Does the pt have substance abuse?: No - Immunizations Immunizations are current?: Yes - POLST Patient has POLST: No Results - Vitals Vitals: Vital Signs - 24 hr 12/12/22 11:47 Temperature 36.8 C Heart Rate 83 Respiratory 14 Rate Blood Pressure 122/74 O2 Saturation 98 Oxygen O2 Source Room air
--- NOTE | 2022-12-12 12:14 | ED Physician Documentation ---
History of Present Illness - Stated complaint Stated Complaint: GLF - Chief complaint Chief Complaint: Heent - History obtained from History obtained from: Patient - Additonal information Additional information: 76-year-old woman who is up-to-date on tetanus had a single beer today and then states she tripped over her feet. She did not have clear loss of consciousness. She is not anticoagulated. She really has no complaints per se. 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 - Present Medications Home Medications: Ambulatory Orders Medication Instructions Recorded Confirmed Duloxetine HCl [Cymbalta] 60 mg PO DAILY 02/15/17 08/11/21 Eszopiclone [Lunesta] 3 mg PO DAILY 02/15/17 08/11/21 Gabapentin [Neurontin] 400 mg PO HS 02/15/17 08/11/21 Lorazepam [Ativan] 2 mg PO DAILY PM 02/15/17 08/11/21 Multivitamin [Multiple Vitamins] 1 each PO DAILY 02/15/17 08/11/21 [place]-3 Fatty Acids/Fish Oil [Fish 1 each PO DAILY 02/15/17 08/11/21 Oil 1,000 mg Softgel] Prazosin HCl [Minipress] 2 mg PO DAILY 02/15/17 08/11/21 Levothyroxine Sodium [Synthroid] 88 mcg PO DAILY 07/15/21 08/11/21 Pantoprazole Sodium 40 mg PO DAILY 07/15/21 08/11/21 - Allergies Allergies/Adverse Reactions: Allergies Allergy/AdvReac Type Severity Reaction Status Date / Time bee pollen Allergy Edema Verified 08/11/21 23:18 diphenhydramine HCl * Allergy Itching Verified 08/11/21 23:18 [From Benadryl] Penicillins Allergy Anaphylaxis Verified 08/11/21 23:18 codeine AdvReac Nausea Verified 08/11/21 23:18 haloperidol [From Haldol] AdvReac Unknown Verified 08/11/21 23:22 Sulfa (Sulfonamide AdvReac Unknown Verified 08/11/21 23:18 Antibiotics) - Social History Does the pt smoke?: Yes Smoking Status: Current every day smoker Does the pt drink ETOH?: No Does the pt have substance abuse?: No - Immunizations Immunizations are current?: Yes - POLST Patient has POLST: No PD ED PE NORMAL - Vitals Vital signs reviewed: Yes - General General: Alert and oriented X 3, No acute distress, Other (She is somnolent but easily arousable.) - HEENT HEENT: PERRL, EOMI, Other (There is abrasion and ecchymosis in the left periorbital region without facial bony tenderness.) - Neck Neck: No bony TTP - Cardiac Cardiac: RRR, No murmur - Respiratory Respiratory: No respiratory distress, Clear bilaterally - Abdomen Abdomen: Non tender - Extremities Extremities: Other (There is a scrape on the right forearm, fairly small without corresponding tenderness or limited range of motion. She has abrasions on both knees without tenderness or limited range of motion.) - Neuro Neuro: Alert and oriented X 3, Normal speech Eye Opening: To Voice Motor: Obeys Commands Verbal: Oriented GCS Score: 14 Results - Vitals Vitals: Vital Signs - 24 hr 12/12/22 12/12/22 12/12/22 11:47 12:38 13:18 Temperature 36.8 C 36.8 C Heart Rate 83 81 80 Respiratory 14 17 15 Rate Blood Pressure 122/74 112/76 122/88 H O2 Saturation 98 98 95 Oxygen O2 Source Room air - Rads (name of study) CT of the head and cervical spine showing no acute trauma. She has degenerative anterolisthesis at C4-5 and C5-6 and DDD at multiple levels. Relevant Findings:: Final report received, EMP independent interpretation of test CT maxillofacial was negative for trauma. Relevant Findings:: Final report received, EMP independent interpretation of test PD Medical Decision Making - ED course ED course: 76-year-old woman after a ground-level fall with some scrapes, but also facial contusion. She had a beer today but is not clinically intoxicated. Relevant imaging negative. Ambulatory here prior to discharge without issue. Departure - Departure Disposition: 01 Home, Self Care Clinical Impression: Ground-level fall, Multiple abrasions Facial contusion Qualifiers: Encounter type: initial encounter Qualified Code(s): S00.83XA - Contusion of other part of head, initial encounter Condition: Good Record reviewed to determine appropriate education?: Yes Instructions: ED Head Injury Closed Comments: For the abrasions, soap and water and keeping covered bacitracin ointment, available [id number], and a regular Band-Aid. Call your doctor to arrange a follow-up appointment, make the next available appointment. In the interim, return anytime if worse or if new symptoms develop. Discharge Date/Time: 12/12/22 13:18
--- OUTSIDE RECORDS SUMMARY | 2022-12-12 12:30 | EXTERNAL MEDICAL SUMMARY RPT | Continuity of Care Document ---
Author Name Unknown Address [address] [place] [address] Phone Organization [facility] Address [address] [place] [address] Phone Care Team Providers Care Undergraduate Advisor Name Role Phone Harmony Gunderson Unavailable Unavailable Medications date description facility [facility]22[facility]-01 [facility]:00 Gabapentin [facility] 2022-11-09 00:00 [facility] 2022-11-09 00:00 Sertraline [facility] 2022-09-27 00:00 Eszopiclone [facility] 2022-11-09 00:00 Bupropion [facility] Social History date description facility 2022-11-09 00:00 Smokes tobacco daily ([facility]) [facility] Vital Signs date measurement value units 2022-11-09 00:00 BMI 27.1 kg/m2 2022-11-09 00:00 BP_diastolic 52 mmHg 2022-11-09 00:00 BP_systolic 116 mmHg 2022-11-09 00:00 heart_rate 84 /min 2022-11-09 00:00 height_metric 151.13 cm 2022-11-09 00:00 height_standard 59.5 in 2022-11-09 00:00 o2_saturation 94 % 2022-11-09 00:00 weight_metric 61.94 kg 2022-11-09 00:00 weight_standard 136.55 lb
--- NOTE | 2022-12-12 13:02 | CT Report ---
PROCEDURE: HEAD WO INDICATIONS: Head and facial injuries TECHNIQUE: Noncontrast 4.5 mm thick angled axial sections acquired from the foramen magnum to the vertex. For r adiation dose reduction, the following was used: automated exposure control, adjustment of mA and/or kV according to patient size. COMPARISON: 03/03/2019 FINDINGS: Image quality: Excellent. CSF spaces: Basal cisterns are patent. No extra-axial fluid collections. The ventricles are symmet elena in size and shape. Brain: No intracranial bleeds or masses. There is cerebral volume loss for age, with resultant vent ricular and sulcal prominence. There are periventricular and deep white matter chronic small vessel ischemic changes. There is intracranial internal carotid artery atherosclerosis. Skull and face: Calvarium and visualized facial bones appear intact, without suspicious lesions. Sinuses: Visualized sinuses and mastoids are clear. IMPRESSION: No CT evidence of acute intracranial abnormalities. No gross acute skull fracture. Reviewed by: Rene Garcia MD on 12/12/2022 1:01 PM PDT Approved by: Rene Garcia MD on 12/12/2022 1:01 PM PDT Station ID: [id number]
--- NOTE | 2022-12-12 13:04 | CT Report ---
PROCEDURE: CERVICAL SPINE WO INDICATIONS: Head and facial injuries TECHNIQUE: Noncontrast 3 mm thick sections acquired from the skull base to the T4 level. Sagittal and coronal r eformats were then constructed. For radiation dose reduction, the following was used: automated exp osure control, adjustment of mA and/or kV according to patient size. COMPARISON: Cervical spine radiograph dated 07/27/2022. FINDINGS: Image quality: Excellent. Bones: No fractures or dislocations. Also disc height, degenerative endplate changes and bilateral f acet hypertrophic changes are noted throughout cervical spine. 3 mm anterolisthesis of C4 on C5 is se en. 2 mm anterolisthesis of C5 on C6 is also seen. Broad-based disc bulge is seen at C4-5 to C6-7 lev els causing mild to moderate central canal stenosis and bilateral neural foraminal narrowing most not ably at C6-7 level. Visualized superior ribs are intact. Soft tissues: Prevertebral soft tissues are normal in thickness. No paravertebral hematomas. No ap ical pneumothoraces. IMPRESSION: 1. No acute cervical spine fracture or dislocation. 2. Likely degenerative anterolisthesis at C4-5 and C5-6 levels as above. 3. Degenerative disc disease are also spine causing various degrees of central canal stenosis and adele ateral neural foraminal narrowing as above. Reviewed by: Rene Garcia MD on 12/12/2022 1:03 PM PDT Approved by: Rene Garcia MD on 12/12/2022 1:03 PM PDT Station ID: [id number]
--- NOTE | 2022-12-12 13:06 | CT Report ---
PROCEDURE: MAXILLOFACIAL WO INDICATIONS: Head and facial injuries TECHNIQUE: Noncontrast 1.5 mm thick axial images acquired from the mandible through the frontal sinuses, with co barb and sagittal reformatting. For radiation dose reduction, the following was used: automated ex posure control, adjustment of mA and/or kV according to patient size. COMPARISON: None. FINDINGS: Image quality: Excellent. Bones and teeth: Orbital grant are intact. Sinus grant show no fracture or deformity. Nasal bones and septum are intact. Visualized portions of the mandible demonstrate no fractures or subluxation. Zygomatic arches are intact. Pterygoid plates are intact. Visualized portions of the skull base an d auditory canals are intact. Sinuses: Paranasal sinuses are aerated, without fluid levels, mucosal thickening, or mucoceles. Mas toid air cells are aerated. Soft tissues: No edema, masses, or fluid collections. No enlarged lymph nodes. No soft tissue lace rations or debris. Vascular: Visualized vascular structures appear normal in the absence of contrast. Bony vascular fo ramina and canals are intact. IMPRESSION: 1. No acute facial bone or nasal bone fracture. Bilateral orbital globes and orbital grant are intact . Nasal septum is midline. 2. Bilateral paranasal sinuses are well aerated. Reviewed by: Rene Garcia MD on 12/12/2022 1:05 PM PDT Approved by: Rene Garcia MD on 12/12/2022 1:05 PM PDT Station ID: [id number]
[2022-12-12] MEDS: BACITRACIN ZINC OINT 1 PACKET TOP STA (13:16)
[2022-12-12 13:19] VITALS: BP 122/88
== END 2022-12-12 13:18 | disposition home or self-care (01) ==
LOC: EDUNIT# → ED 11:42
DX: S00.83XA Contusion of other part of head, initial encounter (principal); S50.811A Abrasion of right forearm, initial encounter; S80.212A Abrasion, left knee, initial encounter; S80.211A Abrasion, right knee, initial encounter; W01.0XXA Fall on same level from slipping, tripping and stumbling without subsequent striking against object, initial encounter; E03.9 Hypothyroidism, unspecified; F17.200 Nicotine dependence, unspecified, uncomplicated; Z79.899 Other long term (current) drug therapy
CPT/HCPCS: 70450; 70486; 72125; 99283; 99284; A9270

== ENCOUNTER 2022-12-13 16:38 | Outpatient (CLI) | payer MEDICARE | END 2022-12-13 16:39 | disposition critical access hospital (66) | LOC: EMS 16:38 | DX: R41.0 Disorientation, unspecified (principal); R51.9 Headache, unspecified; R42 Dizziness and giddiness; F10.90 Alcohol use, unspecified, uncomplicated | CPT/HCPCS: A0425; A0429 ==

== ENCOUNTER 2022-12-13 16:55 | Emergency (ER) | payer MEDICARE ==
--- NOTE | 2022-12-13 17:00 | ED Physician Documentation ---
PD HPI ALTERED MENTAL STATUS - Stated complaint Stated Complaint: FALL/CONFUSION/ETOH - History obtained from History obtained from: Patient, EMS - Additional information Additional information: 76-year-old woman with some history of alcohol use problems was seen yesterday after a fall with facial injuries. CT of the head, facial bones, and cervical spine were negative at the time. She went home. This morning she drank "3 beers." Then went to [employer] where she was acting confused and out of it and was brought here. There is no new fall. Patient really has no complaints. Blood sugar was normal on route. 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: 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 - Present Medications Home Medications: Ambulatory Orders Medication Instructions Recorded Confirmed Duloxetine HCl [Cymbalta] 60 mg PO DAILY 02/15/17 08/11/21 Eszopiclone [Lunesta] 3 mg PO DAILY 02/15/17 08/11/21 Gabapentin [Neurontin] 400 mg PO HS 02/15/17 08/11/21 Lorazepam [Ativan] 2 mg PO DAILY PM 02/15/17 08/11/21 Multivitamin [Multiple Vitamins] 1 each PO DAILY 02/15/17 08/11/21 [place]-3 Fatty Acids/Fish Oil [Fish 1 each PO DAILY 02/15/17 08/11/21 Oil 1,000 mg Softgel] Prazosin HCl [Minipress] 2 mg PO DAILY 02/15/17 08/11/21 Levothyroxine Sodium [Synthroid] 88 mcg PO DAILY 07/15/21 08/11/21 Pantoprazole Sodium 40 mg PO DAILY 07/15/21 08/11/21 - Allergies Allergies/Adverse Reactions: Allergies Allergy/AdvReac Type Severity Reaction Status Date / Time bee pollen Allergy Edema Verified 12/13/22 17:01 diphenhydramine HCl * Allergy Itching Verified 12/13/22 17:01 [From Benadryl] Penicillins Allergy Anaphylaxis Verified 12/13/22 17:01 codeine AdvReac Nausea Verified 12/13/22 17:01 haloperidol [From Haldol] AdvReac Unknown Verified 12/13/22 17:01 Sulfa (Sulfonamide AdvReac Unknown Verified 12/13/22 17:01 Antibiotics) - Social History Does the pt smoke?: Yes Smoking Status: Current every day smoker Does the pt drink ETOH?: No Does the pt have substance abuse?: No - Immunizations Immunizations are current?: Yes - POLST Patient has POLST: No PD ED PE NORMAL - Vitals Vital signs reviewed: Yes - General General: Alert and oriented X 3, Other (Smells of alcohol, slow slurred speech) - HEENT HEENT: PERRL, EOMI, Other (Mild improvement in left periorbital ecchymosis) - Neck Neck: Supple, no meningeal sign, No bony TTP - Cardiac Cardiac: RRR, No murmur - Respiratory Respiratory: No respiratory distress, Clear bilaterally - Abdomen Abdomen: Non tender - Neuro Neuro: Alert and oriented X 3, No motor deficit, No sensory deficit, Other (Slow slurred speech but technically alert and oriented and without complaint) Eye Opening: Spontaneous Motor: Obeys Commands Results - Vitals Vitals: Vital Signs - 24 hr 12/13/22 12/13/22 16:59 17:01 Temperature 36.6 C Heart Rate 88 Respiratory 18 17 Rate Blood Pressure 108/82 H Oxygen O2 Source Room air - Labs Labs: Laboratory Tests 12/13/22 12/13/22 12/13/22 17:09 17:09 17:09 WBC 8.7 RBC 4.08 L Hgb 12.8 Hct 38.8 MCV 95.1 MCH 31.4 H MCHC 33.0 RDW 11.9 L Plt Count 237 MPV 10.5 Neut # (Auto) 6.1 Lymph # (Auto) 1.8 [place] # (Auto) 0.7 Eos # (Auto) 0.1 Baso # (Auto) 0.1 Absolute Nucleated RBC 0.00 Nucleated RBC % 0.0 PT 11.8 INR 1.1 Sodium 137 Potassium 4.3 Chloride 104 Carbon Dioxide 21 Anion Gap 12.0 BUN 17 Creatinine 1.5 H Estimated GFR (MDRD) 34 L Glucose 94 Calcium 8.8 Magnesium 2.0 Total Bilirubin 0.6 AST 25 ALT 19 Alkaline Phosphatase 67 Total Protein 7.1 Albumin 3.8 Globulin 3.3 Albumin/Globulin Ratio 1.2 Ethyl Alcohol 65.3 PD Medical Decision Making - ED course Complexity details: reviewed results (CBC, CMP, INR and blood alcohol level reviewed, significant abnormalities include creatinine modestly elevated at 1.5 and blood alcohol 65.) ED course: 76-year-old woman had mild confusion at the grocery store. She has a borderline blood alcohol level and the remainder of her diagnostic findings are negative and she requested discharge. She was clinically sober at discharge. Departure - Departure Disposition: 01 Home, Self Care Clinical Impression: Confusion Condition: Good Record reviewed to determine appropriate education?: Yes Comments: Blood alcohol modestly elevated 65 today. No other obvious reason for any confusion that was noted at [employer]. Do not drink anymore drive today. Follow- up with your primary care physician, next available appointment. Your creatinine today is elevated at 1.5 suggesting depressed kidney Function. Please mention this to your physician as well. Discharge Date/Time: 12/13/22 18:15
[2022-12-13 17:06] VITALS: BP 108/82
[2022-12-13 17:14] LABS: BASOPHILS # (AUTO) 0.1 10^3/uL (0.0-0.1); BASOPHILS % (AUTO) 0.6 %; EOSINOPHILS # (AUTO) 0.1 10^3/uL (0.0-0.7); EOSINOPHILS % (AUTO) 1.4 %; HCT - HEMATOCRIT 38.8 % (37.0-47.0); HGB - HEMOGLOBIN 12.8 g/dL (12.0-16.0); LYMPHOCYTES # (AUTO) 1.8 10^3/uL (1.5-3.5); LYMPHOCYTES % (AUTO) 20.4 %; MEAN CORPUSCULAR HEMOGLOBIN 31.4 pg (27.0-31.0); MEAN CORPUSCULAR VOLUME 95.1 fL (81.0-99.0); MEAN PLATELET VOLUME 10.5 fL (7.9-10.8); MONOCYTES # (AUTO) 0.7 10^3/uL (0.0-1.0); MONOCYTES % (AUTO) 7.9 %; NEUTROPHILS # (AUTO) 6.1 10^3/uL (1.5-6.6); NEUTROPHILS % (AUTO) 69.5 %; PLT - PLATELET COUNT 237 10^3/uL (130-450); RED BLOOD COUNT 4.08 10^6/uL (4.20-5.40); RED CELL DISTRIBUTION WIDTH 11.9 % (12.0-15.0); WHITE BLOOD COUNT 8.7 x10^3/uL (4.8-10.8)
[2022-12-13 17:22] LABS: INR 1.1 (0.8-1.2); PT - PROTHROMBIN TIME 11.8 secs (9.9-12.6)
[2022-12-13 17:28] LABS: ALBUMIN 3.8 g/dL (3.2-5.5); ALBUMIN/GLOBULIN RATIO 1.2 (1.0-2.2); BILIRUBIN,TOTAL 0.6 mg/dL (0.2-1.0); CALCIUM 8.8 mg/dL (8.5-10.3); CREATININE 1.5 mg/dL (0.4-1.0); ETOH - ETHANOL 65.3 mg/dL; POTASSIUM 4.3 mmol/L (3.5-5.0); TOTAL PROTEIN 7.1 g/dL (6.7-8.2)
--- OUTSIDE RECORDS SUMMARY | 2022-12-13 17:38 | EXTERNAL MEDICAL SUMMARY RPT | Continuity of Care Document ---
Author Name Unknown Address [address] [place] [address] Phone Organization [facility] Address [address] [place] [address] Phone Care Team Providers Care Atm Manager Name Role Phone Harmony Gunderson Unavailable Unavailable Medications date description facility 2022-09-26 00:00 [facility] 2022-09-27 00:[facility] 2022-11-09 [facility] 2022-11-01 00:00 Gabapentin [facility] 2022-11-09 00:00 [facility] 2022-11-09 00:00 Sertraline [facility] 2022-09-27 00:00 Eszopiclone [facility] 2022-11-09 00:00 Bupropion [facility] Social History date description facility 2022-11-09 00:00 [facility] Vital Signs date measurement value units 2022-11-09 00:00 BMI 27.1 kg/m2 2022-11-09 00:00 BP_diastolic 52 mmHg 2022-11-09 00:00 BP_systolic 116 mmHg 2022-11-09 00:00 heart_rate 84 /min 2022-11-09 00:00 height_metric 151.13 cm 2022-11-09 00:00 height_standard 59.5 in 2022-11-09 00:00 o2_saturation 94 % 2022-11-09 00:00 weight_metric 61.94 kg 2022-11-09 00:00 weight_standard 136.55 lb
--- NOTE | 2022-12-13 18:00 | CT Report ---
PROCEDURE: HEAD WO INDICATIONS: ams TECHNIQUE: Noncontrast 4.5 mm thick angled axial sections acquired from the foramen magnum to the vertex. For r adiation dose reduction, the following was used: automated exposure control, adjustment of mA and/or kV according to patient size. COMPARISON: 03/03/2019 FINDINGS: Image quality: Excellent. CSF spaces: Basal cisterns are patent. No extra-axial fluid collections. Ventricles are normal in size and shape. Brain: No midline shift. No intracranial masses or hemorrhage. Garcia-white matter interface is norm al. Subcortical and periventricular hypodensities are consistent with microvascular ischemic disease and age-related cerebral volume loss. Skull and face: Calvarium and visualized facial bones are intact, without suspicious lesions. Sinuses: Visualized sinuses and mastoids are clear. IMPRESSION: 1. No acute intracranial abnormality. 2. Microvascular ischemic disease and age-related cerebral volume loss. Reviewed by: Baltazar Ladd on 12/13/2022 4:59 PM NIEVES Approved by: Baltazar Ladd on 12/13/2022 4:59 PM NIEVES Station ID: [id number]
== END 2022-12-13 18:15 | disposition home or self-care (01) ==
LOC: EDUNIT# → ED 16:55
DX: R41.0 Disorientation, unspecified (principal); E03.9 Hypothyroidism, unspecified; F17.200 Nicotine dependence, unspecified, uncomplicated; Z79.899 Other long term (current) drug therapy
CPT/HCPCS: 36415; 70450; 80053; 83735; 85025; 85610; 99283; 99284; G0480; 80320

== ENCOUNTER 2023-02-05 01:37 | Outpatient (CLI) | payer MEDICARE | END 2023-02-05 01:38 | disposition critical access hospital (66) | LOC: EMS 01:37 | DX: S80.812A Abrasion, left lower leg, initial encounter (principal); S80.811A Abrasion, right lower leg, initial encounter; S40.812A Abrasion of left upper arm, initial encounter; S40.811A Abrasion of right upper arm, initial encounter; S60.512A Abrasion of left hand, initial encounter; S60.511A Abrasion of right hand, initial encounter; S90.812A Abrasion, left foot, initial encounter; S90.811A Abrasion, right foot, initial encounter; S50.312A Abrasion of left elbow, initial encounter; S50.311A Abrasion of right elbow, initial encounter; S80.212A Abrasion, left knee, initial encounter; S80.211A Abrasion, right knee, initial encounter; X58.XXXA Exposure to other specified factors, initial encounter; Y93.89 Activity, other specified; Y92.038 Other place in apartment as the place of occurrence of the external cause; F10.129 Alcohol abuse with intoxication, unspecified | CPT/HCPCS: A0425; A0429 ==

== ENCOUNTER 2023-02-05 01:56 | Emergency (ER) | payer MEDICARE ==
--- OUTSIDE RECORDS SUMMARY | 2023-02-05 03:14 | EXTERNAL MEDICAL SUMMARY RPT | Continuity of Care Document ---
Author Name Unknown Address [address] [place] [address] Phone Organization [facility] Address [address] [place] [address] Phone Care Team Providers Care Underground Truck Operator Name Role Phone NeptaliHarmony Unavailable Unavailable Medications date description facility 2022-11-09 00:00 [facility] 2022-12-28 00:00 [facility] 2022-11-09 00:00 Gabapentin [facility] 2022-12-28 00:00 [facility] 2022-11-09 00:00 Sertraline [facility] 2022-12-26 00:00 Eszopiclone [facility] 2022-11-09 00:00 Bupropion [facility] 2022-12-28 00:00 [facility] Social History date description facility 2022-11-09 00:00 Smokes tobacco daily (finding) [facility] 2022-12-28 00:00 Smokes tobacco daily (finding) [facility] Vital Signs date measurement value units 2022-11-09 00:00 BMI 27.1 kg/m2 2022-11-09 00:00 BP_diastolic 52 mmHg 2022-11-09 00:00 BP_systolic 116 mmHg 2022-11-09 00:00 heart_rate 84 /min 2022-11-09 00:00 height_metric 151.13 cm 2022-11-09 00:00 height_standard 59.5 in 2022-11-09 00:00 o2_saturation 94 % 2022-11-09 00:00 weight_metric 61.94 kg 2022-11-09 00:00 weight_standard 136.55 lb
[2023-02-05 03:24] LABS: BASOPHILS % (AUTO) 0.3 %; EOSINOPHILS # (AUTO) 0.1 10^3/uL (0.0-0.7); EOSINOPHILS % (AUTO) 0.7 %; HCT - HEMATOCRIT 39.5 % (37.0-47.0); LYMPHOCYTES # (AUTO) 1.8 10^3/uL (1.5-3.5); LYMPHOCYTES % (AUTO) 14.8 %; MEAN CORPUSCULAR HEMOGLOBIN 31.8 pg (27.0-31.0); MEAN CORPUSCULAR HGB CONC 32.9 g/dL (32.0-36.0); MEAN CORPUSCULAR VOLUME 96.6 fL (81.0-99.0); MEAN PLATELET VOLUME 10.3 fL (7.9-10.8); MONOCYTES % (AUTO) 7.9 %; NEUTROPHILS # (AUTO) 9.3 10^3/uL (1.5-6.6); PLT - PLATELET COUNT 214 10^3/uL (130-450); RED BLOOD COUNT 4.09 10^6/uL (4.20-5.40); RED CELL DISTRIBUTION WIDTH 12.6 % (12.0-15.0); WHITE BLOOD COUNT 12.3 x10^3/uL (4.8-10.8)
[2023-02-05 03:45] LABS: ALBUMIN/GLOBULIN RATIO 1.4 (1.0-2.2); BILIRUBIN,TOTAL 0.3 mg/dL (0.2-1.0); CALCIUM 9.2 mg/dL (8.5-10.3); CREATININE 1.3 mg/dL (0.6-1.3); ETOH - ETHANOL 80.4 mg/dL; POTASSIUM 3.6 mmol/L (3.5-4.5); TOTAL PROTEIN 6.9 g/dL (6.4-8.9)
[2023-02-05] MEDS ORDERED: BACITRACIN ZINC OINT 1 PACKET TOP STA (04:36)
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
--- NOTE | 2023-02-05 07:42 | CT Report ---
PROCEDURE: HEAD WO INDICATIONS: AMS TECHNIQUE: Noncontrast 4.5 mm thick angled axial sections acquired from the foramen magnum to the vertex. For r adiation dose reduction, the following was used: automated exposure control, adjustment of mA and/or kV according to patient size. COMPARISON: CT head 12/13/2022, 12/13/2022. FINDINGS: Image quality: Excellent. CSF spaces: Basal cisterns are patent. No extra-axial fluid collections. Ventricles are normal in size and shape. Brain: No midline shift. No intracranial masses or hemorrhage. Subcortical ventricular hypodensiti es are consistent with microvascular ischemic changes. Garcia-white matter interface is normal. Skull and face: Calvarium and visualized facial bones are intact, without suspicious lesions. Sinuses: Visualized sinuses and mastoids are clear. IMPRESSION: No acute intracranial abnormality. Reviewed by: Fatmata Arita MD on 02/05/2023 7:41 AM PDT Approved by: Fatmata Arita MD on 02/05/2023 7:41 AM PDT Station ID: [id number]
[2023-02-05 10:19] VITALS: BP 103/66; O2SAT 98
--- NOTE | 2023-02-05 10:47 | ED Physician Documentation ---
ED Addendum - Addendum Addendum: 02/05/23 10:45 The patient is awake and conversant this morning. She has been up to the bathroom and back a few times ambulatory on her own. She was not eating as yet breakfast had been brought for her. The safe technician brought it to her and she started having her meal. She states she does not really recall last evening. She states she drinks alcohol intermittently. She denied any other coingestions. She did have altered mental status last night. Alcohol of it was not that [place] but if this is an occasional event then she might of been intoxicated at a lower level than expected. She appears well this morning. Her blood tests and evaluation and head CT did not show any other obvious causes for the altered mentation aside from an alcohol level. At this point the patient states she feels comfortable heading home and would like to take the bus or call a friend. She is oriented to person place and year. Again she is eating on her own and ambulatory to the bathroom. She states she lives in an apartment building that does have some assistance. She has a neighbor that can help her as well. At this point the patient appears well enough to be discharged. No other obvious ill causes identified. Disposition: The patient discharged home in stable condition. Diagnoses: 1. Altered mental status 2. Alcohol intoxication
== END 2023-02-05 11:02 | disposition home or self-care (01) ==
LOC: EDUNIT# → ED 01:56
DX: F10.129 Alcohol abuse with intoxication, unspecified (principal); Y90.4 Blood alcohol level of 80-99 mg/100 ml; S80.212A Abrasion, left knee, initial encounter; S50.312A Abrasion of left elbow, initial encounter; S50.311A Abrasion of right elbow, initial encounter; S90.415A Abrasion, left lesser toe(s), initial encounter; S90.414A Abrasion, right lesser toe(s), initial encounter; S90.412A Abrasion, left great toe, initial encounter; S90.411A Abrasion, right great toe, initial encounter; X58.XXXA Exposure to other specified factors, initial encounter; F17.200 Nicotine dependence, unspecified, uncomplicated
CPT/HCPCS: 36415; 70450; 80053; 82140; 83690; 85025; 99283; 99284; A9270; G0480; 80320

== ENCOUNTER 2023-09-05 14:41 | Outpatient (CLI) | payer MEDICARE | END 2023-09-05 23:59 | disposition critical access hospital (66) | LOC: EMS 14:41 | DX: Z04.6 Encounter for general psychiatric examination, requested by authority (principal); R41.0 Disorientation, unspecified; R41.3 Other amnesia; R26.81 Unsteadiness on feet | CPT/HCPCS: A0425; A0429 ==

== ENCOUNTER 2023-09-05 15:02 | Emergency (ER) | payer MEDICARE ==
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
[2023-09-05 15:31] VITALS: O2SAT 95
[2023-09-05 15:57] LABS: BASOPHILS # (AUTO) 0.1 10^3/uL (0.0-0.1); BASOPHILS % (AUTO) 0.4 %; EOSINOPHILS # (AUTO) 0.1 10^3/uL (0.0-0.7); EOSINOPHILS % (AUTO) 0.7 %; HCT - HEMATOCRIT 40.1 % (37.0-47.0); HGB - HEMOGLOBIN 13.4 g/dL (12.0-16.0); LYMPHOCYTES # (AUTO) 2.2 10^3/uL (1.5-3.5); MEAN CORPUSCULAR HEMOGLOBIN 31.8 pg (27.0-31.0); MEAN CORPUSCULAR HGB CONC 33.4 g/dL (32.0-36.0); MEAN PLATELET VOLUME 10.2 fL (7.9-10.8); MONOCYTES % (AUTO) 8.2 %; NEUTROPHILS # (AUTO) 8.7 10^3/uL (1.5-6.6); NEUTROPHILS % (AUTO) 72.4 %; PLT - PLATELET COUNT 284 10^3/uL (130-450); RED BLOOD COUNT 4.22 10^6/uL (4.20-5.40); RED CELL DISTRIBUTION WIDTH 12.3 % (12.0-15.0); WHITE BLOOD COUNT 12.1 x10^3/uL (4.8-10.8)
[2023-09-05 16:09] LABS: BILIRUBIN,URINE NEGATIVE (NEGATIVE); GLUCOSE, URINE (UA) NEGATIVE (NEGATIVE); KETONES,URINE (UA) NEGATIVE (NEGATIVE); LEUKOCYTE ESTERASE, URINE SMALL (NEGATIVE); NITRITE,URINE NEGATIVE (NEGATIVE); OCCULT BLOOD,URINE TRACE-INTA (NEGATIVE); PH,URINE 7.5 PH (5.0-7.5); PROTEIN,URINE NEGATIVE (NEGATIVE); UROBILINOGEN,URINE 0.2 (NORMAL) E.U./dL (NORMAL)
[2023-09-05 16:11] LABS: CLARITY,URINE CLEAR (CLEAR)
[2023-09-05 16:21] LABS: AMPHETAMINE SCREEN,URINE NEGATIVE (NEGATIVE); BACTERIA,URINE Rare /HPF (None Seen); BARBITURATE SCREEN,UR NEGATIVE (NEGATIVE); BENZODIAZEPINES SCREEN, URINE POSITIVE (NEGATIVE); BUPRENORPHINE SCREEN, URINE NEGATIVE (NEGATIVE); COCAINE SCREEN URINE NEGATIVE (NEGATIVE); METHADONE SCREEN, URINE NEGATIVE (NEGATIVE); METHAMPHETAMINES SCREEN, URINE NEGATIVE (NEGATIVE); OPIATE SCREEN, URINE NEGATIVE (NEGATIVE); OXYCODONE SCREEN, URINE NEGATIVE (NEGATIVE); RBC,URINE 0-5 /HPF (0-5); SQUAMOUS EPITHELIAL CELL,UR FEW Squamous (<= Few); THC CANNABINOID SCREEN, URINE NEGATIVE (NEGATIVE); TRICYCLIC ANTIDEPRESSANT,URINE NEGATIVE (NEGATIVE)
[2023-09-05 16:41] LABS: THYROID STIMULATING HORMONE 10.35 uIU/mL (0.34-5.60)
[2023-09-05 16:57] LABS: ACETAMINOPHEN 0.3 ug/mL; ALBUMIN 4.5 g/dL (3.2-5.5); ALBUMIN/GLOBULIN RATIO 1.4 (1.0-2.2); ALKALINE PHOSPHATASE 68 IU/L (42-121); ALT ALANINE AMINOTRANSFERASE 14 IU/L (10-60); AST ASPARTATE AMINOTRANSFERASE 19 IU/L (10-42); BILIRUBIN,TOTAL 0.8 mg/dL (0.2-1.0); BUN - BLOOD UREA NITROGEN 23 mg/dL (6-20); CARBON DIOXIDE - CO2 27 mmol/L (21-32); CHLORIDE 101 mmol/L (101-111); CK- CREATINE KINASE 102 IU/L (30-223); CREATININE 1.5 mg/dL (0.6-1.3); ETOH - ETHANOL < 10.0 mg/dL; GFR - MDRD 34 (>89); GLUCOSE 94 mg/dL (74-104); LIPASE 24 U/L (11-82); MAGNESIUM 1.9 mg/dL (1.7-2.3); POTASSIUM 4.7 mmol/L (3.5-4.5); SODIUM 135 mmol/L (135-145); TOTAL PROTEIN 7.7 g/dL (6.4-8.9)
[2023-09-05 16:58] LABS: SALICYLATE < 1.5 mg/dL
[2023-09-05 18:21] VITALS: BP 128/74
== END 2023-09-05 18:35 | disposition home or self-care (01) ==
LOC: EDUNIT# → ED 15:02
DX: R40.1 Stupor (principal); W19.XXXA Unspecified fall, initial encounter; F17.200 Nicotine dependence, unspecified, uncomplicated
CPT/HCPCS: 36415; 80053; 80143; 80306; 81001; 82550; 82607; 83690; 83735; 84443; 85025; 87086; 99283; G0480; 80179; 81003; 82077

== ENCOUNTER 2023-09-09 15:09 | Outpatient (CLI) | payer MEDICARE | END 2023-09-09 23:59 | disposition critical access hospital (66) | LOC: EMS 15:09 | DX: R41.0 Disorientation, unspecified (principal); W18.30XA Fall on same level, unspecified, initial encounter; Y93.01 Activity, walking, marching and hiking; Y92.413 State road as the place of occurrence of the external cause | CPT/HCPCS: A0425; A0429 ==

== ENCOUNTER 2023-09-09 15:32 | Emergency (ER) | payer MEDICARE ==
--- NOTE | 2023-09-09 15:44 | ED Physician Documentation ---
History of Present Illness - Stated complaint Stated Complaint: GLF - Chief complaint Chief Complaint: General - History obtained from History obtained from: Patient, EMS - History of Present Illness Timing: Today Pain level max: 0 Pain level now: 0 - Additonal information Additional information: Patient is a 77-year-old female who lives at home alone. Has a reported history of alcoholism, but states that she does not drink anymore. She states occasionally she uses marijuana. Reportedly she was trying to cross the street today when she stumbled and fell. Unclear if she struck her head or not. Bystanders helped her up and moved her off of the road. They called 911 because "she was acting confused". EMS arrived and they state that they convinced the patient to be checked out in the emergency department. The patient was seen here recently after a similar incident. [place] her cognitive issues. The patient denies any injuries today. She does not believe that she struck her head. She states she does not take blood thinners. She states that she is on a cholesterol medicine. Review of her chart shows that she is on bupropion, lorazepam, gabapentin, atorvastatin, levothyroxine, eszopiclone, pantoprazole, Zoloft Review of Systems Constitutional: denies: Fever, Chills Respiratory: denies: Cough GI: denies: Nausea, Vomiting, Diarrhea Skin: denies: Rash Musculoskeletal: denies: Neck pain, Back pain 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 - Present Medications Home Medications: Ambulatory Orders Medication Instructions Recorded Confirmed Duloxetine HCl [Cymbalta] 60 mg PO DAILY 02/15/17 08/11/21 Eszopiclone [Lunesta] 3 mg PO DAILY 02/15/17 08/11/21 Gabapentin [Neurontin] 400 mg PO HS 02/15/17 08/11/21 Lorazepam [Ativan] 2 mg PO DAILY PM 02/15/17 08/11/21 Multivitamin [Multiple Vitamins] 1 each PO DAILY 02/15/17 08/11/21 [place]-3 Fatty Acids/Fish Oil [Fish 1 each PO DAILY 02/15/17 08/11/21 Oil 1,000 mg Softgel] Prazosin HCl [Minipress] 2 mg PO DAILY 02/15/17 08/11/21 Levothyroxine Sodium [Synthroid] 88 mcg PO DAILY 07/15/21 08/11/21 Pantoprazole Sodium 40 mg PO DAILY 07/15/21 08/11/21 Nitrofurantoin [Macrobid] 100 mg PO BID #10 cap 09/09/23 - Allergies Allergies/Adverse Reactions: Allergies Allergy/AdvReac Type Severity Reaction Status Date / Time bee pollen Allergy Edema Verified 09/09/23 15:50 diphenhydramine HCl * Allergy Itching Verified 09/09/23 15:50 [From Benadryl] Penicillins Allergy Anaphylaxis Verified 09/09/23 15:50 codeine AdvReac Nausea Verified 09/09/23 15:50 haloperidol [From Haldol] AdvReac Unknown Verified 09/09/23 15:50 Sulfa (Sulfonamide AdvReac Unknown Verified 09/09/23 15:50 Antibiotics) - Social History Does the pt smoke?: Yes Smoking Status: Current every day smoker Does the pt drink ETOH?: Yes Does the pt have substance abuse?: No - Immunizations Immunizations are current?: Yes - POLST Patient has POLST: No PD ED PE NORMAL - Vitals Vital signs reviewed: Yes - General General: Alert and oriented X 3 (Patient is occasionally confused to questions, but overall is alert, oriented to person, time and place.), No acute distress - HEENT HEENT: Atraumatic, PERRL, EOMI, Ears normal, Moist mucous membranes, Pharynx benign - Neck Neck: Supple, no meningeal sign, No bony TTP - Cardiac Cardiac: RRR, No murmur, Strong equal pulses - Respiratory Respiratory: No respiratory distress, Clear bilaterally - Abdomen Abdomen: Soft, Non tender, Non distended - Derm Derm: Warm and dry - Extremities Extremities: No edema - Neuro Neuro: Alert and oriented X 3, 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, No motor deficit, No sensory deficit, Normal speech (Clear speech, no slurred speech) - Psych Psych: Normal mood, Normal affect Results - Vitals Vitals: Vital Signs - 24 hr 09/09/23 09/09/23 15:36 17:10 Temperature 36.6 C Heart Rate 92 87 Respiratory 16 16 Rate Blood Pressure 131/70 H 136/89 H O2 Saturation 96 100 Oxygen O2 Source Room air - Labs Labs: Laboratory Tests 09/09/23 09/09/23 09/09/23 15:59 15:59 16:23 WBC 16.1 H RBC 4.05 L Hgb 12.4 Hct 38.9 MCV 96.0 MCH 30.6 MCHC 31.9 L RDW 12.6 Plt Count 262 MPV 10.3 Neut # (Auto) 13.1 H Lymph # (Auto) 1.8 [place] # (Auto) 1.1 H Eos # (Auto) 0.1 Baso # (Auto) 0.1 Absolute Nucleated RBC 0.00 Nucleated RBC % 0.0 Sodium 139 Potassium 4.2 Chloride 107 Carbon Dioxide 22 Anion Gap 10.0 BUN 37 H Creatinine 1.4 H Estimated GFR (MDRD) 37 L Glucose 107 H Calcium 9.6 Magnesium 1.9 Total Bilirubin 0.6 AST 14 ALT 10 Alkaline Phosphatase 79 Total Protein 7.4 Albumin 4.4 Globulin 3.0 Albumin/Globulin Ratio 1.5 Lipase 40 Vitamin B12 204 Folate 8.6 TSH 6.25 H Free T4 Direct 0.72 Urine Color YELLOW Urine Clarity HAZY Urine pH 7.0 Ur Specific [place] 1.020 Urine Protein TRACE Urine Glucose (UA) NEGATIVE Urine Ketones NEGATIVE Urine Occult Blood TRACE-LYSE Urine Nitrite NEGATIVE Urine Bilirubin NEGATIVE Urine Urobilinogen 0.2 (NORMAL) Ur Leukocyte Esterase SMALL H Urine RBC 6-10 H Urine WBC 11-25 H Ur Squamous Epith Cells RARE Squamous Urine Bacteria Rare Urine Casts 0-2 Hyaline Casts Ur Microscopic Review INDICATED Urine Culture Comments INDICATED Salicylates < 1.5 Urine Opiates Screen NEGATIVE Ur Buprenorphine Scrn NEGATIVE Ur Oxycodone Screen NEGATIVE Urine Methadone Screen NEGATIVE Acetaminophen 0.2 Ur Barbiturates Screen NEGATIVE Ur Tricyclics Screen NEGATIVE Ur Phencyclidine Scrn NEGATIVE Ur Amphetamine Screen NEGATIVE U Methamphetamines Scrn NEGATIVE U Benzodiazepines Scrn POSITIVE H Urine Cocaine Screen NEGATIVE U Cannabinoids Screen NEGATIVE Ur Drug Screen Comment CUTOFF CONC BELOW: Ethyl Alcohol < 10.0 - Rads (name of study) head ct Relevant Findings:: Final report received, See rad report PD Medical Decision Making - ED course Complexity details: reviewed results, re-evaluated patient, considered differential, d/w patient ED course: 77-year-old female presents the emergency department after reported fall today. She was reportedly altered on scene but does not appear altered here. Occasionally will answer question incorrectly but most of the time she is completely lucid and answers questions correctly. No slurring speech. She is able to ambulate with a normal gait, but she is pigeon toed, suspect that when she tries to walk quickly she trips over her feet. Will trial her with a walker and see how she progresses. Patient was given a dose of Macrobid here for UTI. No fevers. No evidence of sepsis. Has multiple antibiotic allergies. No CVA tenderness. No evidence of pyelonephritis. We will place her on Macrobid for home. Head CT does not show any acute abnormalities. Laboratory testing does not show any significant abnormalities other than the UTI. Patient is well- appearing, nontoxic. Afebrile. Patient counseled regarding signs and symptoms for which I believe and urgent re-evaluation would be necessary. Patient with good understanding of and agreement to plan and is comfortable going home at this time This document was made in part using voice recognition software. While efforts are made to proofread this document, sound alike and grammatical errors may occur. Departure - Departure Disposition: 01 Home, Self Care Clinical Impression: UTI (urinary tract infection) Qualifiers: Urinary tract infection type: acute cystitis Hematuria presence: without hematuria Qualified Code(s): N30.00 - Acute cystitis without hematuria Condition: Good Instructions: ED UTI Cystitis Female Follow-Up: your,doctor in 1 week [Other] Prescriptions: Nitrofurantoin [Macrobid] 100 mg PO BID #10 cap Comments: Your prescription sent to [facility] in [place]. Please take all antibiotics until gone. You should use a walker to help you ambulate, especially outside as you have fallen twice in the past 4 days. Please follow-up with your doctor for further care and return if you worsen. Forms: PCP List Discharge Date/Time: 09/09/23 17:29
[2023-09-09] MEDS: SODIUM CHLORIDE 0.9% 1,000 ML IV STA (16:02)
[2023-09-09 16:06] LABS: BASOPHILS # (AUTO) 0.1 10^3/uL (0.0-0.1); BASOPHILS % (AUTO) 0.3 %; EOSINOPHILS # (AUTO) 0.1 10^3/uL (0.0-0.7); EOSINOPHILS % (AUTO) 0.5 %; HCT - HEMATOCRIT 38.9 % (37.0-47.0); HGB - HEMOGLOBIN 12.4 g/dL (12.0-16.0); LYMPHOCYTES # (AUTO) 1.8 10^3/uL (1.5-3.5); LYMPHOCYTES % (AUTO) 10.9 %; MEAN CORPUSCULAR HEMOGLOBIN 30.6 pg (27.0-31.0); MEAN CORPUSCULAR HGB CONC 31.9 g/dL (32.0-36.0); MEAN PLATELET VOLUME 10.3 fL (7.9-10.8); MONOCYTES # (AUTO) 1.1 10^3/uL (0.0-1.0); MONOCYTES % (AUTO) 6.6 %; NEUTROPHILS # (AUTO) 13.1 10^3/uL (1.5-6.6); NEUTROPHILS % (AUTO) 81.3 %; PLT - PLATELET COUNT 262 10^3/uL (130-450); RED BLOOD COUNT 4.05 10^6/uL (4.20-5.40); RED CELL DISTRIBUTION WIDTH 12.6 % (12.0-15.0); WHITE BLOOD COUNT 16.1 x10^3/uL (4.8-10.8)
--- NOTE | 2023-09-09 16:06 | CT Report ---
PROCEDURE: Head WO INDICATIONS: fall, altered TECHNIQUE: Noncontrast 4.5 mm thick angled axial sections acquired from the foramen magnum to the vertex. For r adiation dose reduction, the following was used: automated exposure control, adjustment of mA and/or kV according to patient size. COMPARISON: 02/05/2023, 12/13/2022, 12/12/2022 FINDINGS: Image quality: Motion artifact is noted. CSF spaces: Basal cisterns are patent. No extra-axial fluid collections. Ventricles are normal in size and shape. Brain: No midline shift. No intracranial masses or hemorrhage. Garcia-white matter interface is norm al. Age-appropriate brain parenchymal volume loss and chronic small vessel ischemic change can be se en. Areas of remote, stable infarction can be seen. Skull and face: Calvarium and visualized facial bones are intact, without suspicious lesions. Sinuses: Visualized sinuses and mastoids are clear. IMPRESSION: No intracranial hemorrhage is seen. No acute intracranial pathology. Study similar to priors. Reviewed by: Dimitry Watters MD on 09/09/2023 3:04 PM NIEVES Approved by: Dimitry Watters MD on 09/09/2023 3:04 PM NIEVES Station ID: [id number]
[2023-09-09 16:25] LABS: ACETAMINOPHEN 0.2 ug/mL; ALBUMIN 4.4 g/dL (3.2-5.5); ALBUMIN/GLOBULIN RATIO 1.5 (1.0-2.2); ALKALINE PHOSPHATASE 79 IU/L (42-121); ALT ALANINE AMINOTRANSFERASE 10 IU/L (10-60); AST ASPARTATE AMINOTRANSFERASE 14 IU/L (10-42); BILIRUBIN,TOTAL 0.6 mg/dL (0.2-1.0); BUN - BLOOD UREA NITROGEN 37 mg/dL (6-20); CALCIUM 9.6 mg/dL (8.5-10.3); CARBON DIOXIDE - CO2 22 mmol/L (21-32); CHLORIDE 107 mmol/L (101-111); CREATININE 1.4 mg/dL (0.6-1.3); ETOH - ETHANOL < 10.0 mg/dL; GFR - MDRD 37 (>89); GLUCOSE 107 mg/dL (74-104); LIPASE 40 U/L (11-82); MAGNESIUM 1.9 mg/dL (1.7-2.3); POTASSIUM 4.2 mmol/L (3.5-4.5); SODIUM 139 mmol/L (135-145); TOTAL PROTEIN 7.4 g/dL (6.4-8.9)
[2023-09-09 16:26] LABS: SALICYLATE < 1.5 mg/dL
[2023-09-09 16:27] LABS: BILIRUBIN,URINE NEGATIVE (NEGATIVE); GLUCOSE, URINE (UA) NEGATIVE (NEGATIVE); KETONES,URINE (UA) NEGATIVE (NEGATIVE); LEUKOCYTE ESTERASE, URINE SMALL (NEGATIVE); NITRITE,URINE NEGATIVE (NEGATIVE); OCCULT BLOOD,URINE TRACE-LYSE (NEGATIVE); PROTEIN,URINE TRACE mg/dL (NEGATIVE); UROBILINOGEN,URINE 0.2 (NORMAL) E.U./dL (NORMAL)
[2023-09-09 16:28] LABS: CLARITY,URINE HAZY (CLEAR)
[2023-09-09 16:32] LABS: BACTERIA,URINE Rare /HPF (None Seen); CASTS, URINE 0-2 Hyaline Casts /LPF; SQUAMOUS EPITHELIAL CELL,UR RARE Squamous (<= Few)
[2023-09-09 16:36] LABS: AMPHETAMINE SCREEN,URINE NEGATIVE (NEGATIVE); BARBITURATE SCREEN,UR NEGATIVE (NEGATIVE); BENZODIAZEPINES SCREEN, URINE POSITIVE (NEGATIVE); BUPRENORPHINE SCREEN, URINE NEGATIVE (NEGATIVE); COCAINE SCREEN URINE NEGATIVE (NEGATIVE); METHADONE SCREEN, URINE NEGATIVE (NEGATIVE); METHAMPHETAMINES SCREEN, URINE NEGATIVE (NEGATIVE); OPIATE SCREEN, URINE NEGATIVE (NEGATIVE); OXYCODONE SCREEN, URINE NEGATIVE (NEGATIVE); THC CANNABINOID SCREEN, URINE NEGATIVE (NEGATIVE); TRICYCLIC ANTIDEPRESSANT,URINE NEGATIVE (NEGATIVE)
[2023-09-09 16:37] LABS: THYROID STIMULATING HORMONE 6.25 uIU/mL (0.34-5.60)
[2023-09-09 17:13] VITALS: BP 136/89; O2SAT 100
[2023-09-09] MEDS: NITROFURANTOIN MACRO 100 MG CAPSULE PO STA (17:22)
== END 2023-09-09 17:29 | disposition home or self-care (01) ==
LOC: EDUNIT# → EDBD → ED 15:32
DX: N30.00 Acute cystitis without hematuria (principal); W01.0XXA Fall on same level from slipping, tripping and stumbling without subsequent striking against object, initial encounter; F17.200 Nicotine dependence, unspecified, uncomplicated
CPT/HCPCS: 36415; 70450; 80053; 80143; 80306; 81001; 82607; 82746; 83690; 83735; 84439; 84443; 85025; 87086; 99284; A9270; G0480; 80179; 81003; 82077